=== PATIENT | male | born 1960 | race Caucasian/White ===

== ENCOUNTER 2018-02-06 07:58 | Inpatient (IN) | payer MEDICARE, OTHER ==
[~2018-02-06] VITALS: Ht 170.2 cm; Wt 100.6 kg
[2018-02-06 08:33] LABS: BASOPHILS % (AUTO) 0.6 % (0-1); EOSINOPHILS # (AUTO) 0.1 X10'3 (0-0.9); EOSINOPHILS % (AUTO) 2.2 % (0-6); HEMATOCRIT 55.9 % (42.0-52.0); LYMPHOCYTES % (AUTO) 18.4 % (21-51); MEAN CORPUSCULAR HEMOGLOBIN 32.5 PG (27.0-31.0); MEAN CORPUSCULAR HGB CONC 32.3 % (33.0-36.5); MEAN CORPUSCULAR VOLUME 100.6 FL (78-98); MEAN PLATELET VOLUME 8.1 FL (7.4-10.4); MONOCYTES # (AUTO) 0.4 X10'3 (0-0.9); MONOCYTES % (AUTO) 6.6 % (2-12); NEUTROPHILS % (AUTO) 72.2 % (42-75); PLATELET COUNT 142 X10'3 (140-440); RED BLOOD COUNT 5.55 X10'6 (4.70-6.10); RED CELL DISTRIBUTION WIDTH 18.5 % (11.5-14.5); WHITE BLOOD COUNT 5.6 X10'3 (4.5-11.0)
[2018-02-06 08:50] LABS: ALANINE AMINOTRANSFERASE 9 U/L (12-78); ALBUMIN 2.7 G/DL (3.4-5.0); ALBUMIN/GLOBULIN RATIO 0.6 (1.1-1.5); ALKALINE PHOSPHATASE 124 IU/L (46-116); ANION GAP 9 (8-16); ASPARTATE AMINO TRANSFERASE 34 U/L (10-37); BILIRUBIN,TOTAL 2.1 MG/DL (0.1-1.0); BLOOD UREA NITROGEN 17 MG/DL (7-18); BUN/CREATININE RATIO 16.8 (5.4-32.0); CALCIUM 8.7 MG/DL (8.5-10.1); CHLORIDE 102 MMOL/L (99-107); CREATININE 1.01 MG/DL (0.60-1.10); GLUCOSE 120 MG/DL (70-104); POTASSIUM 4.1 MMOL/L (3.5-5.1); SODIUM 141 MMOL/L (135-145); TOTAL CARBON DIOXIDE 30.5 MMOL/L (24-32); TOTAL PROTEIN 7.5 G/DL (6.4-8.2); eGFR 76 ML/MIN
[2018-02-06] MEDS ORDERED: albuterol 2.5 MG/3 ML nebule NEB ONE (09:25)
[2018-02-06] MEDS ORDERED: normal saline 1000ML IV soln IVB ONE (09:25)
[2018-02-06 09:29] LABS: PLATELET ESTIMATE NORMAL; POLYCHROMASIA FEW; TARGET CELLS FEW
[2018-02-06 09:48] LABS: D-DIMER 2.37 MG/L FEU (0-0.50)
[2018-02-06] MEDS ORDERED: iohexol 350MG/ML 100ml bottle IV ONE (11:16)
[2018-02-06] MEDS ORDERED: enoxaparin 100mg/ml syringe SUBCUT ONE (12:25)
[2018-02-06] MEDS ORDERED: LISI40TA4 PO (13:17)
[2018-02-06] MEDS ORDERED: CARV-50 PO (13:17)
[2018-02-06] MEDS ORDERED: POTA10CA44 PO (13:17)
[2018-02-06] MEDS ORDERED: FURO-150 PO (13:17)
[2018-02-06] MEDS ORDERED: docusate sod 100mg capsule PO PRN (13:20)
[2018-02-06] MEDS ORDERED: ondansetron/PF 4mg/2ml inj IV PRN (13:20)
[2018-02-06] MEDS ORDERED: magnesium 4gm in 100ml NS 100 ML IV PRN (13:20)
[2018-02-06] MEDS ORDERED: acetaminophen 325mg tablet PO PRN (13:20)
[2018-02-06] MEDS ORDERED: potassium Cl 20 mEq SR tablet PO PRN ×2 (13:20)
[2018-02-06] MEDS ORDERED: magnesium Cl slow-release 64mg tablet PO PRN (13:20)
[2018-02-06] MEDS ORDERED: magnesium 1gm/100ml D5W IVPB 100 ML IV PRN (13:20)
[2018-02-06] MEDS ORDERED: potassium Cl 40MEQ/NS 500ml 500 ML IV PRN ×2 (13:20)
[2018-02-06] MEDS ORDERED: heparin 10,000 units/1 ML INJ IV ONE (13:30)
[2018-02-06] MEDS ORDERED: heparin 10,000 units/1 ML INJ IV PRN (13:30)
[2018-02-06 13:39] LABS: INR 1.3 INR; PARTIAL THROMBOPLASTIN TIME 31 SECONDS (22-32); PROTHROMBIN TIME 13.2 SECONDS (9.0-12.0)
[2018-02-06 15:00] VITALS: BP 132/94
[2018-02-06] MEDS: heparin 25,000 UNIT/250ml bag 250 ML IV SCH (16:28)
[2018-02-06 16:31] LABS: ABG BASE EXCESS 3.7 mmol/L (-2.0-3.0); ABG HCO3 28.7 mmol/L (22.0-26.0); ABG OXYGEN SATURATION 94.1 % (95-98); ABG PCO2 (T) 44.1 mmHg (35.0-48.0); ABG PH (T) 7.432 (7.350-7.450); ABG PO2 (T) 73.9 mmHg (83-108); ALLEN'S TEST Positive; FCOHb 0.4 % (0.5-1.5); FMetHb 0.4 % (0.3-1.12); FO2Hb 93.3 % (94-100); TOTAL HEMOGLOBIN 19.2 G/dl (14.0-18.0)
[2018-02-06] MEDS: albuterol 2.5 MG/3 ML nebule NEB SCH ×3 (16:36→23:17)
[2018-02-06 19:00] VITALS: BP 110/83
[2018-02-06] MEDS ORDERED: carVEDilol 12.5mg tablet PO SCH (20:00)
[2018-02-06] MEDS: potassium chloride 8mEq ER tablet PO SCH (20:38)
[2018-02-06] MEDS: carvedilol 6.25mg tablet PO SCH (20:38)
[2018-02-06 23:00] VITALS: BP 130/97
[2018-02-07] MEDS: heparin 25,000 UNIT/250ml bag 250 ML IV SCH (02:16)
[2018-02-07 03:00] VITALS: BP 107/77
[2018-02-07] MEDS: albuterol 2.5 MG/3 ML nebule NEB SCH ×7 (03:37→23:06)
[2018-02-07 05:15] LABS: BASOPHILS % (AUTO) 0.7 % (0-1); EOSINOPHILS # (AUTO) 0.2 X10'3 (0-0.9); EOSINOPHILS % (AUTO) 2.6 % (0-6); HEMATOCRIT 53.1 % (42.0-52.0); HEMOGLOBIN 17.3 g/dl (14.0-17.9); LYMPHOCYTES # (AUTO) 1.3 X10'3 (1.1-4.8); LYMPHOCYTES % (AUTO) 20.4 % (21-51); MEAN CORPUSCULAR HGB CONC 32.5 % (33.0-36.5); MEAN CORPUSCULAR VOLUME 101.3 FL (78-98); MEAN PLATELET VOLUME 8.2 FL (7.4-10.4); MONOCYTES # (AUTO) 0.7 X10'3 (0-0.9); MONOCYTES % (AUTO) 10.8 % (2-12); NEUTROPHILS # (AUTO) 4.1 X10'3 (1.8-7.7); NEUTROPHILS % (AUTO) 65.5 % (42-75); PLATELET COUNT 130 X10'3 (140-440); RED BLOOD COUNT 5.24 X10'6 (4.70-6.10); RED CELL DISTRIBUTION WIDTH 18.3 % (11.5-14.5); WHITE BLOOD COUNT 6.3 X10'3 (4.5-11.0)
[2018-02-07 06:28] LABS: ALANINE AMINOTRANSFERASE 12 U/L (12-78); ALBUMIN 2.5 G/DL (3.4-5.0); ALBUMIN/GLOBULIN RATIO 0.6 (1.1-1.5); ALKALINE PHOSPHATASE 110 IU/L (46-116); ANION GAP 8 (8-16); ASPARTATE AMINO TRANSFERASE 32 U/L (10-37); BILIRUBIN,TOTAL 1.4 MG/DL (0.1-1.0); BLOOD UREA NITROGEN 22 MG/DL (7-18); BUN/CREATININE RATIO 22.4 (5.4-32.0); CHLORIDE 105 MMOL/L (99-107); CREATININE 0.98 MG/DL (0.60-1.10); GLUCOSE 105 MG/DL (70-104); MAGNESIUM 1.8 MG/DL (1.5-2.4); POTASSIUM 4.1 MMOL/L (3.5-5.1); SODIUM 141 MMOL/L (135-145); TOTAL CARBON DIOXIDE 27.7 MMOL/L (24-32); TOTAL PROTEIN 6.9 G/DL (6.4-8.2); eGFR 79 ML/MIN
[2018-02-07 07:00] VITALS: BP 128/98
[2018-02-07] MEDS: methylPREDNISolone sod succ 125mg/2ml vial IV SCH (07:06)
[2018-02-07] MEDS: carvedilol 6.25mg tablet PO SCH ×2 (07:08→20:18)
[2018-02-07] MEDS: potassium chloride 8mEq ER tablet PO SCH ×2 (07:08→20:18)
[2018-02-07] MEDS: lisinopril 10 MG tablet PO SCH (07:08)
[2018-02-07 07:17] LABS: PLATELET ESTIMATE DECREASED; POLYCHROMASIA 1+
[2018-02-07 07:41] LABS: ANISOCYTOSIS 2+; TARGET CELLS 1+
[2018-02-07] MEDS ORDERED: non-formulary drug (Lisinopril* 10 MG) PO SCH (08:00)
[2018-02-07] MEDS ORDERED: furosemide 10 MG/1 ML 10ml inj IV SCH (08:00)
[2018-02-07] MEDS: K and/or MAG REPLACEMENT MC SCH (08:00)
[2018-02-07 11:00] VITALS: BP 130/92
[2018-02-07] MEDS ORDERED: iohexol 350MG/ML 100ml bottle IV ONE (12:01)
[2018-02-07 15:00] VITALS: BP 125/88
[2018-02-07] MEDS: levoFLOXACIN-Levaquin 500mg/D5 100 ML IV SCH (15:42)
[2018-02-07 18:00] VITALS: BP 131/88
[2018-02-07] MEDS: heparin, porcine 5000 units/ml vial SQ SCH (20:14)
[2018-02-07] MEDS: furosemide 10 MG/1 ML 10ml inj IV SCH (20:17)
[2018-02-07 22:00] VITALS: BP 100/65
[2018-02-08 02:00] VITALS: BP 118/87
[2018-02-08] MEDS: albuterol 2.5 MG/3 ML nebule NEB SCH ×6 (03:08→23:47)
[2018-02-08 06:49] VITALS: BP 111/78
[2018-02-08 07:00] LABS: BASOPHILS % (AUTO) 0.1 % (0-1); EOSINOPHILS % (AUTO) 0 % (0-6); HEMATOCRIT 50.9 % (42.0-52.0); HEMOGLOBIN 16.4 g/dl (14.0-17.9); LYMPHOCYTES # (AUTO) 0.5 X10'3 (1.1-4.8); LYMPHOCYTES % (AUTO) 4.5 % (21-51); MEAN CORPUSCULAR HGB CONC 32.3 % (33.0-36.5); MEAN CORPUSCULAR VOLUME 102.3 FL (78-98); MEAN PLATELET VOLUME 8.4 FL (7.4-10.4); MONOCYTES # (AUTO) 0.8 X10'3 (0-0.9); NEUTROPHILS # (AUTO) 9.2 X10'3 (1.8-7.7); NEUTROPHILS % (AUTO) 87.4 % (42-75); PLATELET COUNT 129 X10'3 (140-440); RED BLOOD COUNT 4.98 X10'6 (4.70-6.10); RED CELL DISTRIBUTION WIDTH 18.4 % (11.5-14.5); WHITE BLOOD COUNT 10.6 X10'3 (4.5-11.0)
[2018-02-08 07:20] LABS: ALANINE AMINOTRANSFERASE 10 U/L (12-78); ALBUMIN 2.4 G/DL (3.4-5.0); ALBUMIN/GLOBULIN RATIO 0.5 (1.1-1.5); ALKALINE PHOSPHATASE 113 IU/L (46-116); ANION GAP 5 (8-16); ASPARTATE AMINO TRANSFERASE 29 U/L (10-37); BLOOD UREA NITROGEN 17 MG/DL (7-18); BUN/CREATININE RATIO 15.7 (5.4-32.0); CALCIUM 8.8 MG/DL (8.5-10.1); CHLORIDE 104 MMOL/L (99-107); CREATININE 1.08 MG/DL (0.60-1.10); GLUCOSE 158 MG/DL (70-104); MAGNESIUM 1.9 MG/DL (1.5-2.4); SODIUM 142 MMOL/L (135-145); TOTAL CARBON DIOXIDE 33.5 MMOL/L (24-32); TOTAL PROTEIN 6.9 G/DL (6.4-8.2); eGFR 70 ML/MIN
[2018-02-08] MEDS: heparin, porcine 5000 units/ml vial SQ SCH ×3 (08:00→19:25)
[2018-02-08] MEDS: methylPREDNISolone sod succ 125mg/2ml vial IV SCH (08:00)
[2018-02-08] MEDS: K and/or MAG REPLACEMENT MC SCH (08:00)
[2018-02-08] MEDS: levoFLOXACIN-Levaquin 500mg/D5 100 ML IV SCH (08:47)
[2018-02-08] MEDS: furosemide 10 MG/1 ML 10ml inj IV SCH ×2 (08:47→19:22)
[2018-02-08] MEDS: potassium chloride 8mEq ER tablet PO SCH ×2 (08:48→19:21)
[2018-02-08] MEDS: lisinopril 10 MG tablet PO SCH (08:48)
[2018-02-08] MEDS: carvedilol 6.25mg tablet PO SCH ×2 (08:48→19:21)
[2018-02-08 11:00] VITALS: BP 108/75
[2018-02-08 15:00] VITALS: BP 111/91
[2018-02-08 19:00] VITALS: BP 128/96
[2018-02-08] MEDS: predniSONE 20 mg tablet PO SCH ×2 (19:21→19:26)
[2018-02-08] MEDS: temazepam 15mg capsule PO PRN ×2 (19:32→21:04)
[2018-02-08 23:00] VITALS: BP 96/73
[2018-02-09] MEDS: albuterol 2.5 MG/3 ML nebule NEB SCH ×6 (02:22→23:42)
[2018-02-09 03:00] VITALS: BP 92/57
[2018-02-09 06:10] LABS: BASOPHILS # (AUTO) 0.1 X10'3 (0-0.2); BASOPHILS % (AUTO) 0.6 % (0-1); EOSINOPHILS # (AUTO) 0.1 X10'3 (0-0.9); EOSINOPHILS % (AUTO) 1.3 % (0-6); HEMATOCRIT 52.1 % (42.0-52.0); HEMOGLOBIN 16.5 g/dl (14.0-17.9); LYMPHOCYTES # (AUTO) 0.8 X10'3 (1.1-4.8); LYMPHOCYTES % (AUTO) 9.3 % (21-51); MEAN CORPUSCULAR HEMOGLOBIN 32.5 PG (27.0-31.0); MEAN CORPUSCULAR HGB CONC 31.7 % (33.0-36.5); MEAN CORPUSCULAR VOLUME 102.3 FL (78-98); MEAN PLATELET VOLUME 8.1 FL (7.4-10.4); MONOCYTES # (AUTO) 0.9 X10'3 (0-0.9); MONOCYTES % (AUTO) 9.9 % (2-12); NEUTROPHILS % (AUTO) 78.9 % (42-75); PLATELET COUNT 156 X10'3 (140-440); RED BLOOD COUNT 5.09 X10'6 (4.70-6.10); RED CELL DISTRIBUTION WIDTH 18.6 % (11.5-14.5); WHITE BLOOD COUNT 8.8 X10'3 (4.5-11.0)
[2018-02-09 06:23] LABS: ALANINE AMINOTRANSFERASE 11 U/L (12-78); ALBUMIN 2.6 G/DL (3.4-5.0); ALBUMIN/GLOBULIN RATIO 0.6 (1.1-1.5); ALKALINE PHOSPHATASE 107 IU/L (46-116); ANION GAP 5 (8-16); ASPARTATE AMINO TRANSFERASE 32 U/L (10-37); BILIRUBIN,TOTAL 1.4 MG/DL (0.1-1.0); BLOOD UREA NITROGEN 16 MG/DL (7-18); BUN/CREATININE RATIO 15.2 (5.4-32.0); CALCIUM 8.5 MG/DL (8.5-10.1); CHLORIDE 100 MMOL/L (99-107); CREATININE 1.05 MG/DL (0.60-1.10); GLUCOSE 127 MG/DL (70-104); MAGNESIUM 1.6 MG/DL (1.5-2.4); SODIUM 141 MMOL/L (135-145); TOTAL PROTEIN 7.1 G/DL (6.4-8.2); eGFR 73 ML/MIN
[2018-02-09 07:00] VITALS: BP 125/91
[2018-02-09] MEDS: predniSONE 20 mg tablet PO SCH (08:00)
[2018-02-09] MEDS: K and/or MAG REPLACEMENT MC SCH (08:00)
[2018-02-09] MEDS: heparin, porcine 5000 units/ml vial SQ SCH ×2 (08:00→19:00)
[2018-02-09] MEDS: carvedilol 6.25mg tablet PO SCH ×2 (08:12→19:30)
[2018-02-09] MEDS: potassium chloride 8mEq ER tablet PO SCH ×2 (08:12→19:30)
[2018-02-09] MEDS: lisinopril 10 MG tablet PO SCH (08:13)
[2018-02-09] MEDS: furosemide 10 MG/1 ML 10ml inj IV SCH ×2 (08:13→19:30)
[2018-02-09 11:00] VITALS: BP 122/84
[2018-02-09] MEDS: levoFLOXACIN 500mg tablet PO SCH (11:30)
[2018-02-09 15:00] VITALS: BP 115/76
[2018-02-09 19:00] VITALS: BP 136/93
[2018-02-09] MEDS: temazepam 15mg capsule PO PRN (19:33)
[2018-02-09] MEDS: acetaminophen 325mg tablet PO PRN (19:34)
[2018-02-09 23:00] VITALS: BP 116/88
[2018-02-10] MEDS: temazepam 15mg capsule PO PRN (00:44)
[2018-02-10 03:00] VITALS: BP 125/88
[2018-02-10] MEDS: albuterol 2.5 MG/3 ML nebule NEB SCH ×3 (03:20→11:53)
[2018-02-10 06:41] LABS: BASOPHILS % (AUTO) 0.8 % (0-1); EOSINOPHILS # (AUTO) 0.2 X10'3 (0-0.9); EOSINOPHILS % (AUTO) 3.3 % (0-6); HEMATOCRIT 52.2 % (42.0-52.0); HEMOGLOBIN 16.9 g/dl (14.0-17.9); LYMPHOCYTES # (AUTO) 0.8 X10'3 (1.1-4.8); LYMPHOCYTES % (AUTO) 15.1 % (21-51); MEAN CORPUSCULAR HEMOGLOBIN 32.7 PG (27.0-31.0); MEAN CORPUSCULAR HGB CONC 32.4 % (33.0-36.5); MEAN PLATELET VOLUME 7.9 FL (7.4-10.4); MONOCYTES # (AUTO) 0.8 X10'3 (0-0.9); MONOCYTES % (AUTO) 14.3 % (2-12); NEUTROPHILS # (AUTO) 3.5 X10'3 (1.8-7.7); NEUTROPHILS % (AUTO) 66.5 % (42-75); PLATELET COUNT 135 X10'3 (140-440); RED BLOOD COUNT 5.17 X10'6 (4.70-6.10); RED CELL DISTRIBUTION WIDTH 17.9 % (11.5-14.5); WHITE BLOOD COUNT 5.3 X10'3 (4.5-11.0)
[2018-02-10 06:49] LABS: ALANINE AMINOTRANSFERASE 11 U/L (12-78); ALBUMIN 2.5 G/DL (3.4-5.0); ALBUMIN/GLOBULIN RATIO 0.6 (1.1-1.5); ALKALINE PHOSPHATASE 98 IU/L (46-116); ANION GAP 2 (8-16); ASPARTATE AMINO TRANSFERASE 32 U/L (10-37); BILIRUBIN,TOTAL 1.3 MG/DL (0.1-1.0); CALCIUM 8.6 MG/DL (8.5-10.1); CHLORIDE 100 MMOL/L (99-107); CREATININE 0.95 MG/DL (0.60-1.10); GLUCOSE 107 MG/DL (70-104); MAGNESIUM 1.8 MG/DL (1.5-2.4); POTASSIUM 3.9 MMOL/L (3.5-5.1); SODIUM 139 MMOL/L (135-145); TOTAL CARBON DIOXIDE 37.2 MMOL/L (24-32); eGFR 82 ML/MIN
[2018-02-10 07:01] LABS: BLOOD UREA NITROGEN 22 MG/DL (7-18); BUN/CREATININE RATIO 23.2 (5.4-32.0)
[2018-02-10] MEDS: heparin, porcine 5000 units/ml vial SQ SCH (08:00)
[2018-02-10] MEDS: K and/or MAG REPLACEMENT MC SCH (08:00)
[2018-02-10] MEDS: furosemide 10 MG/1 ML 10ml inj IV SCH (08:19)
[2018-02-10] MEDS: carvedilol 6.25mg tablet PO SCH (08:20)
[2018-02-10] MEDS: acetaminophen 325mg tablet PO PRN (08:20)
[2018-02-10] MEDS: potassium chloride 8mEq ER tablet PO SCH (08:20)
[2018-02-10] MEDS: lisinopril 10 MG tablet PO SCH (08:21)
[2018-02-10 11:00] VITALS: BP 105/78
[2018-02-10] MEDS: levoFLOXACIN 500mg tablet PO SCH (11:23)
== END 2018-02-10 13:55 | DRG 291 ==
LOC: ER 08:00 → ED HOLD 13:16 → PCU 3S 14:55 → CMPBEDREQ 02-08 12:17
PROVIDERS: ADMIT Internal Medicine; ATTEND Family Medicine
PROC: B32T1ZZ Computerized Tomography (CT Scan) of Left Pulmonary Artery using Low Osmolar Contrast (ICD-10-PCS; principal; 2018-02-06)
PROC: B3201ZZ Computerized Tomography (CT Scan) of Thoracic Aorta using Low Osmolar Contrast (ICD-10-PCS; 2018-02-06)
PROC: B32S1ZZ Computerized Tomography (CT Scan) of Right Pulmonary Artery using Low Osmolar Contrast (ICD-10-PCS; 2018-02-06)
PROC: B32T1ZZ Computerized Tomography (CT Scan) of Left Pulmonary Artery using Low Osmolar Contrast (ICD-10-PCS; 2018-02-07)
PROC: B3201ZZ Computerized Tomography (CT Scan) of Thoracic Aorta using Low Osmolar Contrast (ICD-10-PCS; 2018-02-07)
PROC: B32S1ZZ Computerized Tomography (CT Scan) of Right Pulmonary Artery using Low Osmolar Contrast (ICD-10-PCS; 2018-02-07)
DX: I11.0 Hypertensive heart disease with heart failure (principal); J96.01 Acute respiratory failure with hypoxia; J18.9 Pneumonia, unspecified organism; J44.1 Chronic obstructive pulmonary disease with (acute) exacerbation; J44.0 Chronic obstructive pulmonary disease with (acute) lower respiratory infection; F17.200 Nicotine dependence, unspecified, uncomplicated; I25.10 Atherosclerotic heart disease of native coronary artery without angina pectoris; I25.2 Old myocardial infarction; I42.9 Cardiomyopathy, unspecified; I50.23 Acute on chronic systolic (congestive) heart failure; Z66 Do not resuscitate; F15.90 Other stimulant use, unspecified, uncomplicated; Z95.5 Presence of coronary angioplasty implant and graft; Z88.5 Allergy status to narcotic agent; Z71.6 Tobacco abuse counseling
CPT/HCPCS: 36415; 36600; 71045; 71275; 80053; 82803; 82948; 83735; 83880; 84145; 84484; 85018; 85025; 85379; 85610; 85730; 87070; 93005; 93306; 94640; 94760; 96360; 96361; 99285; G0378; J1644; J1650; J1940; J1956; J2930; J7512; Q9967

== ENCOUNTER 2018-05-28 09:29 | Emergency (ER) | payer MEDICARE, OTHER ==
[~2018-05-28] VITALS: Ht 172.7 cm; Wt 96.4 kg
[~2018-05-28 09:29] MED LIST: ACET-812 PO; ALB0.5UD IH; BUDE0.256 IH; CARV-50 PO; COROTSUS RIGHT EAR; FURO-150 PO; IPRA3AMP31 IH; LISI10TA4 PO; MAGN250T2 PO; POTA10CA44 PO; VITA1TAB20 PO
[2018-05-28 10:16] LABS: BASOPHILS # (AUTO) 0.1 X10'3 (0-0.2); BASOPHILS % (AUTO) 0.9 % (0-1); EOSINOPHILS # (AUTO) 0.1 X10'3 (0-0.9); EOSINOPHILS % (AUTO) 0.9 % (0-6); HEMATOCRIT 54.1 % (42.0-52.0); HEMOGLOBIN 17.9 g/dl (14.0-17.9); LYMPHOCYTES # (AUTO) 0.8 X10'3 (1.1-4.8); MEAN CORPUSCULAR HEMOGLOBIN 33.4 PG (27.0-31.0); MEAN CORPUSCULAR HGB CONC 33.2 g/dL (33.0-36.5); MEAN CORPUSCULAR VOLUME 100.8 FL (78-98); MEAN PLATELET VOLUME 7.8 FL (7.4-10.4); MONOCYTES # (AUTO) 0.9 X10'3 (0-0.9); NEUTROPHILS # (AUTO) 5.7 X10'3 (1.8-7.7); NEUTROPHILS % (AUTO) 75.2 % (42-75); PLATELET COUNT 147 X10'3 (140-440); RED BLOOD COUNT 5.37 X10'6 (4.70-6.10); RED CELL DISTRIBUTION WIDTH 17.4 % (11.5-14.5); WHITE BLOOD COUNT 7.6 X10'3 (4.5-11.0)
[2018-05-28 10:29] LABS: ALANINE AMINOTRANSFERASE 10 U/L (12-78); ALBUMIN 3.1 G/DL (3.4-5.0); ALBUMIN/GLOBULIN RATIO 0.6 (1.1-1.5); ALKALINE PHOSPHATASE 115 IU/L (46-116); ANION GAP 8 (8-16); ASPARTATE AMINO TRANSFERASE 39 U/L (10-37); BILIRUBIN,TOTAL 2.9 MG/DL (0.1-1.0); BLOOD UREA NITROGEN 20 MG/DL (7-18); BUN/CREATININE RATIO 19.2 (5.4-32.0); CALCIUM 8.6 MG/DL (8.5-10.1); CHLORIDE 94 MMOL/L (99-107); CREATININE 1.04 MG/DL (0.60-1.10); GLUCOSE 109 MG/DL (70-104); POTASSIUM 3.9 MMOL/L (3.5-5.1); SODIUM 131 MMOL/L (135-145); TOTAL CARBON DIOXIDE 28.9 MMOL/L (24-32); TOTAL PROTEIN 7.9 G/DL (6.4-8.2); eGFR 73 ML/MIN
[2018-05-28] MEDS ORDERED: normal saline 1000ML IV soln IVB ONE (11:20)
[2018-05-28] MEDS ORDERED: benzonatate 100mg capsule PO ONE (11:20)
[2018-05-28] MEDS ORDERED: ipratropium/albuterol 3ml nebule NEB ONE (11:20)
--- NOTE | 2018-05-28 13:31 | NUR ---
NEB TREATMENT GIVEN EARLIER PER RT.
[2018-05-28 13:42] VITALS: BP 124/92
[2018-05-28] MEDS ORDERED: PRED20TA PO (13:49)
[2018-05-28] MEDS ORDERED: BENZ-16 PO (13:49)
[2018-05-28] MEDS ORDERED: AZIT-63 PO (13:49)
== END 2018-05-28 14:15 | disposition home or self-care (01) ==
LOC: ER 09:30
DX: J44.1 Chronic obstructive pulmonary disease with (acute) exacerbation (principal); J40 Bronchitis, not specified as acute or chronic; R79.89 Other specified abnormal findings of blood chemistry; R56.9 Unspecified convulsions; I11.0 Hypertensive heart disease with heart failure; I50.9 Heart failure, unspecified; I25.10 Atherosclerotic heart disease of native coronary artery without angina pectoris; I25.2 Old myocardial infarction; E11.9 Type 2 diabetes mellitus without complications; F15.90 Other stimulant use, unspecified, uncomplicated; Z95.1 Presence of aortocoronary bypass graft; Z87.891 Personal history of nicotine dependence; Z88.6 Allergy status to analgesic agent
CPT/HCPCS: 36415; 70450; 71046; 76700; 80053; 83605; 85025; 87040; 94640; 94760; 99284

== ENCOUNTER 2019-01-30 02:15 | Inpatient (IN) | payer MEDICARE, MEDICAID ==
[~2019-01-30] VITALS: Ht 170.2 cm; Wt 100.0 kg
[2019-01-30] MEDS ORDERED: furosemide 10 MG/1 ML 10ml inj IV ONE (02:35)
[2019-01-30 02:41] LABS: BASOPHILS # (AUTO) 0.1 X10'3 (0-0.2); BASOPHILS % (AUTO) 0.8 % (0-1); EOSINOPHILS # (AUTO) 0.2 X10'3 (0-0.9); EOSINOPHILS % (AUTO) 1.5 % (0-6); HEMATOCRIT 53.4 % (42.0-52.0); HEMOGLOBIN 17.9 g/dl (14.0-17.9); LYMPHOCYTES # (AUTO) 0.6 X10'3 (1.1-4.8); LYMPHOCYTES % (AUTO) 5.1 % (21-51); MEAN CORPUSCULAR HEMOGLOBIN 34.4 PG (27.0-31.0); MEAN CORPUSCULAR HGB CONC 33.5 g/dL (33.0-36.5); MEAN CORPUSCULAR VOLUME 102.7 FL (78-98); MEAN PLATELET VOLUME 7.4 FL (7.4-10.4); MONOCYTES # (AUTO) 0.7 X10'3 (0-0.9); MONOCYTES % (AUTO) 6.3 % (2-12); NEUTROPHILS # (AUTO) 9.7 X10'3 (1.8-7.7); NEUTROPHILS % (AUTO) 86.3 % (42-75); PLATELET COUNT 179 X10'3 (140-440); RED CELL DISTRIBUTION WIDTH 17.6 % (11.5-14.5); WHITE BLOOD COUNT 11.2 X10'3 (4.5-11.0)
[2019-01-30 02:51] LABS: PARTIAL THROMBOPLASTIN TIME 32 SECONDS (22-32)
[2019-01-30 03:01] LABS: ALANINE AMINOTRANSFERASE 8 U/L (12-78); ALBUMIN 3.6 G/DL (3.4-5.0); ALBUMIN/GLOBULIN RATIO 0.6 (1.1-1.5); ALKALINE PHOSPHATASE 122 IU/L (46-116); ANION GAP 7 (8-16); ASPARTATE AMINO TRANSFERASE 48 U/L (10-37); BILIRUBIN,TOTAL 3.2 MG/DL (0.1-1.0); BLOOD UREA NITROGEN 26 MG/DL (7-18); BUN/CREATININE RATIO 18.3 (5.4-32.0); CALCIUM 8.9 MG/DL (8.5-10.1); CHLORIDE 94 MMOL/L (99-107); CREATININE 1.42 MG/DL (0.60-1.10); ETHANOL < 0.010 GM/DL (0.0-0.010); GLUCOSE 103 MG/DL (70-104); SODIUM 128 MMOL/L (135-145); TOTAL PROTEIN 9.6 G/DL (6.4-8.2); eGFR 51 ML/MIN
[2019-01-30 03:05] LABS: POTASSIUM 6.3 MMOL/L (3.5-5.1)
--- NOTE | 2019-01-30 03:07 | NUR ---
K+ 6.[address] SALMON
--- NOTE | 2019-01-30 03:28 | NUR ---
PATIENT MOANING AND GROANING IN BED, STATES THAT HE NEEDS TO SIT UP, BUT DOES NOT WANT THE BED UP. WHEN ASKED SAYS THAT THE PAIN IS IN HIS RIGHT SHOULDER DUE TO " ALL THE LIGAMENTS FROM HIS BACK IN 1988" PATIENT HAS ALSO STATED MANY TIMES THAT HE DOES NOT WANT PAIN MEDICATIONS DUE TO HIS "HISTORY"
--- NOTE | 2019-01-30 03:31 | NUR ---
PATIENT STATED THAT HE HAS HAD "TROUBLE PEEING" BLADDER SCAN SHOWED 150ML
[2019-01-30] MEDS ORDERED: insulin regular, human 10 units/0.1 ml syringe IV ONE (03:35)
[2019-01-30] MEDS ORDERED: albuterol 2.5 MG/3 ML nebule NEB ONE (03:35)
[2019-01-30] MEDS ORDERED: aspirin 81mg tab.chew PO ONE (03:35)
[2019-01-30] MEDS ORDERED: dextrose 50%-water 50ml dispensing syringe IV ONE (03:35)
[2019-01-30] MEDS ORDERED: lactulose 20gm/30ml cup PO ONE (03:50)
[2019-01-30] MEDS ORDERED: calcium gluconate inj. 1 GM in normal saline 100ml IV soln 100 ML IV ONE (03:50)
[2019-01-30 04:06] LABS: PHOSPHORUS 4.9 MG/DL (2.3-4.5)
[2019-01-30] MEDS ORDERED: ondansetron/PF 4mg/2ml inj IV PRN (04:30)
[2019-01-30] MEDS ORDERED: mag hydrox/Alum hydrox/simeth 30ml oral suspension PO PRN (04:30)
[2019-01-30] MEDS ORDERED: HYDROcodone/acetaminophen 5mg/325mg tablet PO PRN (04:30)
[2019-01-30] MEDS ORDERED: heparin 10,000 units/1 ML INJ IV ONE (04:30)
[2019-01-30] MEDS ORDERED: heparin 10,000 units/1 ML INJ IV PRN (04:30)
[2019-01-30] MEDS ORDERED: acetaminophen 325mg tablet PO PRN (04:30)
[2019-01-30] MEDS ORDERED: magnesium hydroxide 30ml (MOM) UD suspension PO PRN (04:30)
--- NOTE | 2019-01-30 04:30 | NUR ---
BP 77/58 DR AWARE, 250ML NS BOLUS ORDERED AND ADMINISTERED AT THIS TIME. PATIENT IS ASYMPTOMATIC AT THIS TIME
[2019-01-30] MEDS ORDERED: albuterol 2.5 MG/3 ML nebule NEB PRN (04:40)
[2019-01-30] MEDS ORDERED: non-formulary drug (Acetaminophen (Tylenol Extra Strength) 1 TABLET) PO PRN (04:40)
[2019-01-30] MEDS ORDERED: ipratropium/albuterol 3ml nebule IH PRN (04:40)
[2019-01-30] MEDS: heparin 25,000 UNIT/250ml bag 250 ML IV SCH ×2 (05:14→13:58)
--- NOTE | 2019-01-30 06:16 | NUR ---
PATIENT GOT HIMSELF TO SIDE OF BED WITHOUT ASSISTANCE
[2019-01-30] MEDS ORDERED: normal saline 1000ML IV soln IVB ONE (06:55)
[2019-01-30] MEDS: carvedilol 6.25mg tablet PO SCH ×2 (07:32→20:00)
[2019-01-30] MEDS: aspirin 81mg tablet.DR PO SCH (07:36)
[2019-01-30 07:40] VITALS: BP 80/59
[2019-01-30] MEDS ORDERED: VITAMIN B COMPLEX PO SCH (08:00)
[2019-01-30] MEDS ORDERED: furosemide 20 MG/2 ML vial IV SCH (08:00)
[2019-01-30] MEDS: budesonide 0.5mg/2ml UD nebule IH SCH ×3 (09:00→19:21)
--- NOTE | 2019-01-30 09:01 | NUR ---
PAGER ID: [phone] MESSAGE: [id number] Jonatan Reeder: BP 79/52 MAP 61. Does claim dizziness when trying to stand. Did received 250cc bolus in ER (ineffective). Also K was 6.3 ER received 5 units humulin in ER. No recheck on K and no Mg levels. JUAN DIEGO John Ext [phone]
[2019-01-30] MEDS ORDERED: potassium Cl 20 mEq SR tablet PO PRN ×2 (09:20)
[2019-01-30] MEDS ORDERED: potassium CL 10mEq/100ml bag 100 ML IV PRN (09:20)
[2019-01-30] MEDS ORDERED: nitroGLYCERIN 0.4mg SUBLingual tab SL PRN (09:30)
[2019-01-30] MEDS ORDERED: aminophylline 250mg/10ml inj. IV PRN (09:30)
[2019-01-30] MEDS ORDERED: regadenoson 0.4mg/5ml syringe IV ONE (09:30)
[2019-01-30] MEDS ORDERED: metoprolol tartrate 1mg/ml inj IV PRN (09:30)
[2019-01-30] MEDS ORDERED: insulin Lispro (HumaLOG) vial - multi-dose SQ SCH (10:55)
[2019-01-30] MEDS ORDERED: glucagon, human recombinant 1mg kit SUBCUT PRN (10:55)
[2019-01-30] MEDS ORDERED: dextrose 50%-water 50ml dispensing syringe IV PRN ×2 (10:55)
[2019-01-30] MEDS ORDERED: dextrose ORAL solution 15 GM/59 ML bottle PO PRN ×2 (10:55)
[2019-01-30] MEDS ORDERED: MESSAGE TO PHARMACY PO ONE (10:55)
[2019-01-30 11:00] VITALS: BP 82/65
[2019-01-30 11:33] VITALS: BP 82/65
[2019-01-30 11:35] LABS: BASOPHILS % (AUTO) 0.3 % (0-1); EOSINOPHILS % (AUTO) 0.2 % (0-6); HEMATOCRIT 48.3 % (42.0-52.0); HEMOGLOBIN 16.2 g/dl (14.0-17.9); LYMPHOCYTES # (AUTO) 0.6 X10'3 (1.1-4.8); LYMPHOCYTES % (AUTO) 4.9 % (21-51); MEAN CORPUSCULAR HEMOGLOBIN 34.4 PG (27.0-31.0); MEAN CORPUSCULAR HGB CONC 33.5 g/dL (33.0-36.5); MEAN CORPUSCULAR VOLUME 102.7 FL (78-98); MEAN PLATELET VOLUME 7.6 FL (7.4-10.4); MONOCYTES # (AUTO) 0.4 X10'3 (0-0.9); MONOCYTES % (AUTO) 3.7 % (2-12); NEUTROPHILS # (AUTO) 10.3 X10'3 (1.8-7.7); NEUTROPHILS % (AUTO) 90.9 % (42-75); PLATELET COUNT 168 X10'3 (140-440); RED CELL DISTRIBUTION WIDTH 17.2 % (11.5-14.5); WHITE BLOOD COUNT 11.3 X10'3 (4.5-11.0)
[2019-01-30 11:53] LABS: ALANINE AMINOTRANSFERASE 6 U/L (12-78); ALBUMIN 3.1 G/DL (3.4-5.0); ALKALINE PHOSPHATASE 103 IU/L (46-116); ANION GAP 7 (8-16); ASPARTATE AMINO TRANSFERASE 34 U/L (10-37); BILIRUBIN,TOTAL 4.1 MG/DL (0.1-1.0); BLOOD UREA NITROGEN 31 MG/DL (7-18); BUN/CREATININE RATIO 17.4 (5.4-32.0); CALCIUM 8.7 MG/DL (8.5-10.1); CHLORIDE 97 MMOL/L (99-107); CREATININE 1.78 MG/DL (0.60-1.10); GLUCOSE 126 MG/DL (70-104); POTASSIUM 5.5 MMOL/L (3.5-5.1); SODIUM 130 MMOL/L (135-145); TOTAL CARBON DIOXIDE 26.2 MMOL/L (24-32); eGFR 39 ML/MIN
[2019-01-30 11:54] LABS: HEMOGLOBIN A1C 5.9 % (4.5-6.2)
[2019-01-30 11:57] LABS: ALBUMIN/GLOBULIN RATIO 0.6 (1.1-1.5); PHOSPHORUS 4.9 MG/DL (2.3-4.5); TOTAL PROTEIN 8.2 G/DL (6.4-8.2)
--- NOTE | 2019-01-30 11:58 | NUR ---
PAGER ID: [phone] MESSAGE: [id number] Jonatan Reeder: Cardiac PTT 101. Gtt bening held for 120 min per protocol. JUAN DIEGO John Ext [phone]
--- NOTE | 2019-01-30 13:43 | NUR ---
Cardiac diet education consult: Pt just admitted this morning with hx COPD, CAD, PA, HTN, CHF, HLD, T2DM, and illicit drug abuse. Lipid panel WNL at previous visit in 2018, pending new lipid panel this visit. Will f/u for heart healthy diet education pending lipid panel results. Pt currently on heart healthy CHO controlled diet documented with 100% PO intake meeting nutrient needs. Pt with hx T2DM, A1c 5.9 not warranting DM education. [facility] 01/30. Will continue to follow. Addendum: 01/30/19 at [address] Amended: Links added.
[2019-01-30 14:18] LABS: URINE AMPHETAMINE SCREEN NEGATIVE (Neg); URINE BARBITUATE SCREEN NEGATIVE (Neg); URINE BENZODIAZEPINES SCREEN NEGATIVE (Neg); URINE CANNABINOID SCREEN NEGATIVE (Neg); URINE COCAINE SCREEN NEGATIVE (Neg); URINE METHADONE SCREEN NEGATIVE (Neg); URINE OPIATE SCREEN NEGATIVE (Neg); URINE PHENCYCLIDINE SCREEN NEGATIVE (Neg)
[2019-01-30 15:00] VITALS: BP 89/69
[2019-01-30] MEDS ORDERED: sodium polystyrene sulfonate 15gm/60ml oral suspension PO ONE (16:20)
--- NOTE | 2019-01-30 16:22 | NUR ---
No change to heparin gtt PTT therapeutic.
[2019-01-30 18:00] VITALS: BP 93/67
--- NOTE | 2019-01-30 18:15 | NUR ---
Patient in room PCU 3026. I have received report from Alvaro Adame and had the opportunity to ask questions and assume patient care.
--- NOTE | 2019-01-30 18:31 | NUR ---
Problems reprioritized. Patient report given, questions answered & plan of care reviewed with JUAN DIEGO Patrick.
[2019-01-30] MEDS: acetaminophen 325mg tablet PO PRN (18:41)
[2019-01-30] MEDS: sulfamethoxazole/trimethoprim DS (800/160mg) tablet PO SCH (19:53)
[2019-01-30] MEDS: furosemide 20 MG/2 ML vial IV SCH (20:00)
--- NOTE | 2019-01-30 20:14 | NUR ---
Dr. Dobson notified of low BP, lasix and carvedilol ordered to be held
[2019-01-30] MEDS: insulin glargine (Lantus) pen - multi-dose SQ SCH (21:00)
[2019-01-30 22:00] VITALS: BP 86/63
[2019-01-31] MEDS: acetaminophen 325mg tablet PO PRN ×2 (00:28→22:19)
[2019-01-31 02:00] VITALS: BP 104/73
[2019-01-31 02:53] LABS: BASOPHILS % (AUTO) 0.7 % (0-1); EOSINOPHILS % (AUTO) 0.4 % (0-6); HEMATOCRIT 46.3 % (42.0-52.0); HEMOGLOBIN 15.7 g/dl (14.0-17.9); LYMPHOCYTES # (AUTO) 0.6 X10'3 (1.1-4.8); LYMPHOCYTES % (AUTO) 8.8 % (21-51); MEAN CORPUSCULAR HEMOGLOBIN 34.8 PG (27.0-31.0); MEAN CORPUSCULAR VOLUME 102.3 FL (78-98); MEAN PLATELET VOLUME 7.7 FL (7.4-10.4); MONOCYTES # (AUTO) 0.9 X10'3 (0-0.9); MONOCYTES % (AUTO) 11.8 % (2-12); NEUTROPHILS # (AUTO) 5.7 X10'3 (1.8-7.7); NEUTROPHILS % (AUTO) 78.3 % (42-75); PLATELET COUNT 149 X10'3 (140-440); RED BLOOD COUNT 4.53 X10'6 (4.70-6.10); RED CELL DISTRIBUTION WIDTH 17.2 % (11.5-14.5); WHITE BLOOD COUNT 7.3 X10'3 (4.5-11.0)
[2019-01-31 02:58] LABS: ALANINE AMINOTRANSFERASE 7 U/L (12-78); ALBUMIN 2.9 G/DL (3.4-5.0); ALBUMIN/GLOBULIN RATIO 0.6 (1.1-1.5); ALKALINE PHOSPHATASE 93 IU/L (46-116); ANION GAP 11 (8-16); ASPARTATE AMINO TRANSFERASE 38 U/L (10-37); BLOOD UREA NITROGEN 42 MG/DL (7-18); BUN/CREATININE RATIO 23.7 (5.4-32.0); CALCIUM 8.5 MG/DL (8.5-10.1); CHLORIDE 95 MMOL/L (99-107); CHOL/HDL RATIO 1.7 (0.00-4.99); CHOLESTEROL 75 MG/DL (0-200); CREATININE 1.77 MG/DL (0.60-1.10); GLUCOSE 104 MG/DL (70-104); HDL CHOLESTEROL 45 MG/DL (35-60); LDL CHOLESTEROL 36 MG/DL (50-100); MAGNESIUM 1.9 MG/DL (1.5-2.4); PHOSPHORUS 5.1 MG/DL (2.3-4.5); POTASSIUM 4.9 MMOL/L (3.5-5.1); SODIUM 129 MMOL/L (135-145); TOTAL CARBON DIOXIDE 23.2 MMOL/L (24-32); TOTAL PROTEIN 7.6 G/DL (6.4-8.2); TRIGLYCERIDES 29 MG/DL (20-135); eGFR 40 ML/MIN
[2019-01-31] MEDS: heparin 25,000 UNIT/250ml bag 250 ML IV SCH ×2 (03:46→20:32)
[2019-01-31 06:00] VITALS: BP 95/74
[2019-01-31 06:23] LABS: HEP B CORE AB, TOT Negative (Negative); HEPATITIS C ANTIBODY >11.0 s/co ratio (0.0-0.9)
--- NOTE | 2019-01-31 06:42 | NUR ---
Problems reprioritized. Patient report given, questions answered & plan of care reviewed with Alondra ADAMSON.
[2019-01-31] MEDS: levoTHYROXINE 75mcg tablet PO SCH (07:00)
[2019-01-31] MEDS: sulfamethoxazole/trimethoprim DS (800/160mg) tablet PO SCH ×2 (08:00→20:58)
[2019-01-31] MEDS: carvedilol 6.25mg tablet PO SCH ×2 (08:00→20:58)
[2019-01-31] MEDS: aspirin 81mg tablet.DR PO SCH (08:00)
[2019-01-31] MEDS: furosemide 20 MG/2 ML vial IV SCH ×2 (08:00→20:00)
[2019-01-31] MEDS: budesonide 0.5mg/2ml UD nebule IH SCH ×2 (08:24→20:27)
--- NOTE | 2019-01-31 09:22 | NUR ---
Per Dr. Ron, cancelled Lexiscan for to low blood pressure.
--- NOTE | 2019-01-31 10:23 | NUR ---
PAGER ID: [phone] MESSAGE: [id number], Radha Reeder Critical Cardiac PTT >139. Current rate 900units. Stopping Heparin for 2 hours. VENKATA Mane [facility] [id number]
[2019-01-31 11:00] VITALS: BP 104/79
--- NOTE | 2019-01-31 12:00 | NUR ---
F/u for consult: Patient's lipid panel WNL per results from this morning and Na remains low at this time. Cardiac diet education not warranted at this time. Will continue to follow. Addendum: 01/31/19 at [address] Amended: Links added.
[2019-01-31 15:00] VITALS: BP 99/75
[2019-01-31 18:00] VITALS: BP 100/77
--- NOTE | 2019-01-31 18:05 | NUR ---
Patient in room PCU 3026. I have received report from Alondra ADAMSON and had the opportunity to ask questions and assume patient care.
--- NOTE | 2019-01-31 18:27 | NUR ---
Problems reprioritized. Patient report given, questions answered & plan of care reviewed with Kit ADAMSON.
[2019-01-31] MEDS: lactobacillus rhamnosus 10,000 MMU CELLS/CAPSULE PO SCH (20:59)
[2019-01-31] MEDS: insulin glargine (Lantus) pen - multi-dose SQ SCH (21:00)
[2019-01-31 22:00] VITALS: BP 88/65
[2019-02-01 02:00] VITALS: BP 98/80
--- NOTE | 2019-02-01 04:02 | NUR ---
patient stated that he wished a excavating supervisor draw his blood instead of the nurse. Activated Sludge Operator said that she would draw him once non-isolation patients were done.
[2019-02-01 05:58] LABS: BASOPHILS # (AUTO) 0.1 X10'3 (0-0.2); BASOPHILS % (AUTO) 0.9 % (0-1); EOSINOPHILS # (AUTO) 0.1 X10'3 (0-0.9); EOSINOPHILS % (AUTO) 2.1 % (0-6); HEMATOCRIT 45.5 % (42.0-52.0); HEMOGLOBIN 15.6 g/dl (14.0-17.9); LYMPHOCYTES # (AUTO) 0.8 X10'3 (1.1-4.8); LYMPHOCYTES % (AUTO) 12.8 % (21-51); MEAN CORPUSCULAR HEMOGLOBIN 34.9 PG (27.0-31.0); MEAN CORPUSCULAR HGB CONC 34.2 g/dL (33.0-36.5); MEAN CORPUSCULAR VOLUME 102.2 FL (78-98); MEAN PLATELET VOLUME 7.6 FL (7.4-10.4); MONOCYTES # (AUTO) 0.8 X10'3 (0-0.9); MONOCYTES % (AUTO) 14.4 % (2-12); NEUTROPHILS # (AUTO) 4.1 X10'3 (1.8-7.7); NEUTROPHILS % (AUTO) 69.8 % (42-75); PLATELET COUNT 154 X10'3 (140-440); RED BLOOD COUNT 4.45 X10'6 (4.70-6.10); RED CELL DISTRIBUTION WIDTH 17.1 % (11.5-14.5); WHITE BLOOD COUNT 5.9 X10'3 (4.5-11.0)
[2019-02-01 06:00] VITALS: BP 102/75
--- NOTE | 2019-02-01 06:26 | NUR ---
Problems reprioritized. Patient report given, questions answered & plan of care reviewed with Leia RN.
[2019-02-01 06:37] LABS: ALANINE AMINOTRANSFERASE 7 U/L (12-78); ALBUMIN 2.9 G/DL (3.4-5.0); ALBUMIN/GLOBULIN RATIO 0.6 (1.1-1.5); ALKALINE PHOSPHATASE 90 IU/L (46-116); ANION GAP 11 (8-16); ASPARTATE AMINO TRANSFERASE 40 U/L (10-37); BILIRUBIN,TOTAL 2.2 MG/DL (0.1-1.0); BLOOD UREA NITROGEN 48 MG/DL (7-18); BUN/CREATININE RATIO 30.2 (5.4-32.0); CALCIUM 8.4 MG/DL (8.5-10.1); CHLORIDE 94 MMOL/L (99-107); CREATININE 1.59 MG/DL (0.60-1.10); GLUCOSE 86 MG/DL (70-104); POTASSIUM 4.7 MMOL/L (3.5-5.1); SODIUM 127 MMOL/L (135-145); TOTAL CARBON DIOXIDE 22.5 MMOL/L (24-32); TOTAL PROTEIN 7.4 G/DL (6.4-8.2); eGFR 45 ML/MIN
[2019-02-01] MEDS: acetaminophen 325mg tablet PO PRN (06:53)
[2019-02-01] MEDS: levoTHYROXINE 75mcg tablet PO SCH (06:53)
--- NOTE | 2019-02-01 06:59 | NUR ---
Patient in room PCU 3026. I have received report from JUAN DIEGO Pantoja and had the opportunity to ask questions and assume patient care. Pt c/o headache, requesting tylenol. Will continue to monitor.
--- NOTE | 2019-02-01 07:23 | NUR ---
Pt states he does not have thyroid problems and does not take levothyroxine. Will inform doctor.
[2019-02-01] MEDS: budesonide 0.5mg/2ml UD nebule IH SCH (07:36)
[2019-02-01] MEDS: sulfamethoxazole/trimethoprim DS (800/160mg) tablet PO SCH (07:48)
[2019-02-01] MEDS: aspirin 81mg tablet.DR PO SCH (07:48)
[2019-02-01] MEDS: lactobacillus rhamnosus 10,000 MMU CELLS/CAPSULE PO SCH (07:48)
[2019-02-01] MEDS: carvedilol 6.25mg tablet PO SCH (07:48)
[2019-02-01] MEDS: furosemide 20 MG/2 ML vial IV SCH (07:49)
[2019-02-01] MEDS ORDERED: ASPI-1071 PO (09:26)
--- NOTE | 2019-02-01 10:02 | NUR ---
Sent to Dr Gamez PAGER ID: [phone] MESSAGE: RE: Jonatan Reeder [id number]. Heparin drip needs to be d/c'd before I can discharge pt. -Leia [phone]
--- NOTE | 2019-02-01 11:45 | NUR ---
Pt discharged. IV d/c'd, tele removed, all belongings sent with pt. Pt wheeled down by staff, accompanied by friend. Left in private vehicle.
--- NOTE | 2019-02-01 12:36 | NUR ---
Unable to set an Addendum: 02/01/19 at 1237 by Leia Mena RN Unable to set an appointment at [facility], d/t it being Saturday. Pt has an appointment set in [place], and will switch to [facility] afterwards.
== END 2019-02-01 11:45 | disposition home or self-care (01) | DRG 280 ==
LOC: ER 02:15 → ED HOLD 04:27 → PCU 3S 07:19
PROVIDERS: ADMIT Hospitalist; ATTEND Internal Medicine
DX: I21.4 Non-ST elevation (NSTEMI) myocardial infarction (principal); I50.23 Acute on chronic systolic (congestive) heart failure; E87.1 Hypo-osmolality and hyponatremia; I13.0 Hypertensive heart and chronic kidney disease with heart failure and stage 1 through stage 4 chronic kidney disease, or unspecified chronic kidney disease; I43 Cardiomyopathy in diseases classified elsewhere; E87.5 Hyperkalemia; B19.20 Unspecified viral hepatitis C without hepatic coma; E11.22 Type 2 diabetes mellitus with diabetic chronic kidney disease; N18.9 Chronic kidney disease, unspecified; M54.9 Dorsalgia, unspecified; E03.9 Hypothyroidism, unspecified; F15.988 Other stimulant use, unspecified with other stimulant-induced disorder; E78.5 Hyperlipidemia, unspecified; J44.9 Chronic obstructive pulmonary disease, unspecified; I25.119 Atherosclerotic heart disease of native coronary artery with unspecified angina pectoris; Z88.6 Allergy status to analgesic agent; I25.2 Old myocardial infarction; Z87.891 Personal history of nicotine dependence; Z95.5 Presence of coronary angioplasty implant and graft; Z86.14 Personal history of Methicillin resistant Staphylococcus aureus infection
CPT/HCPCS: 36415; 71045; 76700; 80053; 80061; 80305; 80320; 82948; 83036; 83735; 83880; 84100; 84443; 84484; 85025; 85610; 85730; 86704; 86706; 86803; 87081; 93005; 93306; 94640; 94760; 99291; G0378; J0610; J1644; J1815; J1940; J7626

== ENCOUNTER 2019-02-20 18:05 | Emergency (ER) | payer MEDICARE, MEDICAID ==
[~2019-02-20] VITALS: Ht 170.2 cm; Wt 105.0 kg
[~2019-02-20 18:05] MED LIST changes: +ASPI-1071 PO; -COROTSUS RIGHT EAR; -LISI10TA4 PO; -MAGN250T2 PO
[2019-02-20 18:41] LABS: BASOPHILS # (AUTO) 0.1 X10'3 (0-0.2); BASOPHILS % (AUTO) 1.4 % (0-1); EOSINOPHILS # (AUTO) 0.3 X10'3 (0-0.9); EOSINOPHILS % (AUTO) 6.6 % (0-6); HEMATOCRIT 46.1 % (42.0-52.0); HEMOGLOBIN 15.4 g/dl (14.0-17.9); LYMPHOCYTES # (AUTO) 0.6 X10'3 (1.1-4.8); LYMPHOCYTES % (AUTO) 12.9 % (21-51); MEAN CORPUSCULAR HEMOGLOBIN 34.8 PG (27.0-31.0); MEAN CORPUSCULAR HGB CONC 33.5 g/dL (33.0-36.5); MEAN CORPUSCULAR VOLUME 103.8 FL (78-98); MEAN PLATELET VOLUME 7.1 FL (7.4-10.4); MONOCYTES # (AUTO) 0.6 X10'3 (0-0.9); MONOCYTES % (AUTO) 13.2 % (2-12); NEUTROPHILS # (AUTO) 2.9 X10'3 (1.8-7.7); NEUTROPHILS % (AUTO) 65.9 % (42-75); PLATELET COUNT 145 X10'3 (140-440); RED BLOOD COUNT 4.44 X10'6 (4.70-6.10); RED CELL DISTRIBUTION WIDTH 18.5 % (11.5-14.5); WHITE BLOOD COUNT 4.4 X10'3 (4.5-11.0)
[2019-02-20 18:46] LABS: ALANINE AMINOTRANSFERASE 9 U/L (12-78); ALBUMIN 3.1 G/DL (3.4-5.0); ALBUMIN/GLOBULIN RATIO 0.6 (1.1-1.5); ALKALINE PHOSPHATASE 109 IU/L (46-116); ANION GAP 5 (8-16); ASPARTATE AMINO TRANSFERASE 40 U/L (10-37); BILIRUBIN,TOTAL 1.7 MG/DL (0.1-1.0); BLOOD UREA NITROGEN 18 MG/DL (7-18); BUN/CREATININE RATIO 15.8 (5.4-32.0); CALCIUM 8.7 MG/DL (8.5-10.1); CHLORIDE 98 MMOL/L (99-107); CREATININE 1.14 MG/DL (0.60-1.10); GLUCOSE 91 MG/DL (70-104); POTASSIUM 4.1 MMOL/L (3.5-5.1); SODIUM 133 MMOL/L (135-145); TOTAL CARBON DIOXIDE 30.5 MMOL/L (24-32); TOTAL PROTEIN 8.3 G/DL (6.4-8.2); eGFR 66 ML/MIN
[2019-02-20 19:38] LABS: PARTIAL THROMBOPLASTIN TIME 32 SECONDS (22-32)
[2019-02-20 19:44] LABS: D-DIMER 2.32 MG/L FEU (0-0.50)
[2019-02-20] MEDS ORDERED: furosemide 10 MG/1 ML 10ml inj IV ONE (20:05)
[2019-02-20] MEDS ORDERED: FURO80TA87 PO (20:08)
[2019-02-20] MEDS ORDERED: iohexol 350MG/ML 100ml bottle IV ONE (20:30)
--- NOTE | 2019-02-20 21:21 | NUR ---
PT PULLED MONITORING LINES OFF, STATES HE IS READY TO GO HOME. EXPLAINED TO PT THAT WE WERE WAITING FOR CT RESULT BEFORE DISCHARGING HIM, IF NORMAL. PT STATED HE WAS NOT GOING TO STAY IN THE HOSPITAL
[2019-02-20 21:40] VITALS: BP 136/91
== END 2019-02-20 21:38 | disposition home or self-care (01) ==
LOC: ER 18:06
DX: R60.9 Edema, unspecified (principal); I25.10 Atherosclerotic heart disease of native coronary artery without angina pectoris; I50.9 Heart failure, unspecified; I11.0 Hypertensive heart disease with heart failure; I25.2 Old myocardial infarction; J44.9 Chronic obstructive pulmonary disease, unspecified; E11.9 Type 2 diabetes mellitus without complications; F15.90 Other stimulant use, unspecified, uncomplicated; Z98.61 Coronary angioplasty status; Z98.890 Other specified postprocedural states; Z88.5 Allergy status to narcotic agent; Z79.82 Long term (current) use of aspirin; Z79.899 Other long term (current) drug therapy
CPT/HCPCS: 36415; 71045; 71275; 80053; 83605; 83880; 84484; 85025; 85379; 85610; 85730; 87040; 93005; 96374; 99284; J1940; Q9967

== ENCOUNTER 2019-02-28 18:50 | Emergency (ER) | payer MEDICARE, MEDICAID ==
[~2019-02-28] VITALS: Ht 170.2 cm; Wt 107.3 kg
[~2019-02-28 18:50] MED LIST changes: +FURO80TA87 PO
[2019-02-28 19:49] LABS: BASOPHILS % (AUTO) 0.6 % (0-1); EOSINOPHILS # (AUTO) 0.2 X10'3 (0-0.9); EOSINOPHILS % (AUTO) 3.9 % (0-6); HEMATOCRIT 43.5 % (42.0-52.0); HEMOGLOBIN 14.7 g/dl (14.0-17.9); LYMPHOCYTES # (AUTO) 0.5 X10'3 (1.1-4.8); LYMPHOCYTES % (AUTO) 9.5 % (21-51); MEAN CORPUSCULAR HEMOGLOBIN 35.3 PG (27.0-31.0); MEAN CORPUSCULAR HGB CONC 33.9 g/dL (33.0-36.5); MEAN CORPUSCULAR VOLUME 104.1 FL (78-98); MEAN PLATELET VOLUME 7.3 FL (7.4-10.4); MONOCYTES # (AUTO) 0.6 X10'3 (0-0.9); MONOCYTES % (AUTO) 12.5 % (2-12); NEUTROPHILS # (AUTO) 3.6 X10'3 (1.8-7.7); NEUTROPHILS % (AUTO) 73.5 % (42-75); PLATELET COUNT 192 X10'3 (140-440); RED BLOOD COUNT 4.18 X10'6 (4.70-6.10); RED CELL DISTRIBUTION WIDTH 19.6 % (11.5-14.5); WHITE BLOOD COUNT 4.8 X10'3 (4.5-11.0)
[2019-02-28 20:02] LABS: ALANINE AMINOTRANSFERASE 6 U/L (12-78); ALBUMIN/GLOBULIN RATIO 0.6 (1.1-1.5); ALKALINE PHOSPHATASE 108 IU/L (46-116); ANION GAP 7 (8-16); ASPARTATE AMINO TRANSFERASE 44 U/L (10-37); BLOOD UREA NITROGEN 22 MG/DL (7-18); BUN/CREATININE RATIO 17.1 (5.4-32.0); CALCIUM 8.4 MG/DL (8.5-10.1); CHLORIDE 97 MMOL/L (99-107); CREATININE 1.29 MG/DL (0.60-1.10); GLUCOSE 96 MG/DL (70-104); POTASSIUM 4.3 MMOL/L (3.5-5.1); SODIUM 131 MMOL/L (135-145); TOTAL CARBON DIOXIDE 27.2 MMOL/L (24-32); TOTAL PROTEIN 8.1 G/DL (6.4-8.2); eGFR 57 ML/MIN
[2019-02-28 20:27] LABS: ANISOCYTOSIS 2+; PLATELET ESTIMATE NORMAL; TARGET CELLS FEW
[2019-02-28] MEDS ORDERED: ipratropium/albuterol 3ml nebule NEB ONE (20:45)
[2019-02-28] MEDS ORDERED: furosemide 10 MG/1 ML 10ml inj IV ONE (20:45)
--- NOTE | 2019-02-28 21:17 | NUR ---
ASSISTING RN WITH PT CARE, PT IS RESTING QUIETLY GURNEY, RESP EVEN AND SLIGHTLY LABORED, FAMILY AT BEDSIDE
[2019-02-28] MEDS ORDERED: FURO80TA87 PO (22:04)
[2019-02-28 22:15] VITALS: BP 121/83
== END 2019-02-28 22:21 | disposition home or self-care (01) ==
LOC: ER 18:51
DX: I50.9 Heart failure, unspecified (principal); I25.10 Atherosclerotic heart disease of native coronary artery without angina pectoris; I11.0 Hypertensive heart disease with heart failure; I25.2 Old myocardial infarction; J44.9 Chronic obstructive pulmonary disease, unspecified; E11.9 Type 2 diabetes mellitus without complications; F15.90 Other stimulant use, unspecified, uncomplicated; Z98.61 Coronary angioplasty status; Z98.890 Other specified postprocedural states; Z88.5 Allergy status to narcotic agent; Z79.82 Long term (current) use of aspirin; Z79.899 Other long term (current) drug therapy
CPT/HCPCS: 36415; 71045; 80053; 83880; 84484; 85025; 93005; 94640; 96374; 99284; J1940; 94760

== ENCOUNTER 2019-03-05 21:46 | Inpatient (IN) | payer MEDICARE, MEDICAID ==
[~2019-03-05] VITALS: Ht 170.2 cm; Wt 116.8 kg
[2019-03-05 00:25] VITALS: BP 114/89
[2019-03-05] MEDS ORDERED: ipratropium/albuterol 3ml nebule NEB ONE (22:05)
[2019-03-05 22:06] LABS: BASOPHILS # (AUTO) 0.1 X10'3 (0-0.2); BASOPHILS % (AUTO) 1.4 % (0-1); EOSINOPHILS # (AUTO) 0.2 X10'3 (0-0.9); EOSINOPHILS % (AUTO) 2.9 % (0-6); HEMATOCRIT 48.4 % (42.0-52.0); HEMOGLOBIN 16.1 g/dl (14.0-17.9); LYMPHOCYTES # (AUTO) 0.7 X10'3 (1.1-4.8); LYMPHOCYTES % (AUTO) 11.8 % (21-51); MEAN CORPUSCULAR HEMOGLOBIN 34.9 PG (27.0-31.0); MEAN CORPUSCULAR HGB CONC 33.2 g/dL (33.0-36.5); MEAN CORPUSCULAR VOLUME 104.8 FL (78-98); MEAN PLATELET VOLUME 6.9 FL (7.4-10.4); MONOCYTES # (AUTO) 0.8 X10'3 (0-0.9); MONOCYTES % (AUTO) 13.5 % (2-12); NEUTROPHILS % (AUTO) 70.4 % (42-75); PLATELET COUNT 187 X10'3 (140-440); RED BLOOD COUNT 4.62 X10'6 (4.70-6.10); RED CELL DISTRIBUTION WIDTH 19.6 % (11.5-14.5); WHITE BLOOD COUNT 5.7 X10'3 (4.5-11.0)
--- NOTE | 2019-03-05 22:07 | NUR ---
PT WITH AUDIBLE WHEEZE, PT REPORTS A NEED FOR A NEBULIZER , DUO NEB ORDERED.
--- NOTE | 2019-03-05 22:21 | NUR ---
RT AT BEDSIDE FOR SVN
[2019-03-05 22:22] LABS: ALANINE AMINOTRANSFERASE 9 U/L (12-78); ALBUMIN 3.2 G/DL (3.4-5.0); ALBUMIN/GLOBULIN RATIO 0.6 (1.1-1.5); ALKALINE PHOSPHATASE 120 IU/L (46-116); ANION GAP 6 (8-16); ASPARTATE AMINO TRANSFERASE 47 U/L (10-37); BILIRUBIN,TOTAL 1.9 MG/DL (0.1-1.0); BLOOD UREA NITROGEN 16 MG/DL (7-18); BUN/CREATININE RATIO 15.8 (5.4-32.0); CALCIUM 8.7 MG/DL (8.5-10.1); CHLORIDE 101 MMOL/L (99-107); CREATININE 1.01 MG/DL (0.60-1.10); GLUCOSE 90 MG/DL (70-104); SODIUM 137 MMOL/L (135-145); TOTAL CARBON DIOXIDE 29.9 MMOL/L (24-32); TOTAL PROTEIN 8.8 G/DL (6.4-8.2); eGFR 76 ML/MIN
[2019-03-05] MEDS ORDERED: furosemide 10 MG/1 ML 10ml inj IV ONE (23:20)
[2019-03-05] MEDS ORDERED: KEN0.1O TOP (23:38)
[2019-03-05] MEDS ORDERED: MUPI22OI30 TOP (23:38)
--- NOTE | 2019-03-05 23:39 | NUR ---
dr lorenzo at bedside for admission. pts mother remains at bedside. current vss.
[2019-03-06] VITALS (7 sets, daily range): BP systolic 96–144; BP diastolic 72–92
[2019-03-06] MEDS ORDERED: magnesium Cl slow-release 64mg tablet PO PRN
[2019-03-06] MEDS ORDERED: ondansetron/PF 4mg/2ml inj IV PRN
[2019-03-06] MEDS ORDERED: acetaminophen 325mg tablet PO PRN
[2019-03-06] MEDS ORDERED: mag hydrox/Alum hydrox/simeth 30ml oral suspension PO PRN
[2019-03-06] MEDS ORDERED: magnesium 2GM in 50ml NS 50 ML IV PRN
[2019-03-06] MEDS ORDERED: magnesium 4gm in 100ml NS 100 ML IV PRN
[2019-03-06] MEDS ORDERED: potassium CL 10mEq/100ml bag 100 ML IV PRN ×2
[2019-03-06] MEDS ORDERED: potassium Cl 20 mEq SR tablet PO PRN ×2
[2019-03-06] MEDS ORDERED: magnesium hydroxide 30ml (MOM) UD suspension PO PRN
[2019-03-06] MEDS ORDERED: non-formulary drug (Albuterol Sulfate Nebs* (Proventil Nebs*) 2.5 MG) IH PRN (00:15)
--- NOTE | 2019-03-06 00:30 | NUR ---
Patient in room ED 2. I have received report from Sabi ED RN and had the opportunity to ask questions and assume patient care.
[2019-03-06] MEDS: ipratropium/albuterol 3ml nebule IH PRN ×2 (04:32→16:12)
--- NOTE | 2019-03-06 06:32 | NUR ---
Patient in room HEMANTH 350. I have received report from JUAN DIEGO Dominique and had the opportunity to ask questions and assume patient care.
--- NOTE | 2019-03-06 06:35 | NUR ---
Problems reprioritized. Patient report given, questions answered & plan of care reviewed with JUAN DIEGO Davis.
[2019-03-06] MEDS: carvedilol 6.25mg tablet PO SCH ×2 (07:40→23:11)
[2019-03-06] MEDS: potassium chloride 8mEq ER tablet PO SCH ×2 (07:40→23:10)
[2019-03-06] MEDS: aspirin 81mg tablet.DR PO SCH (07:40)
--- NOTE | 2019-03-06 07:45 | NUR ---
Pt adamantly refused heparin injection during morning med pass. States 'I'll come to blows with anyone that tries to force that stuff on me'. I attempted to educate pt about heparin but he interrupted to explain that the last time he received heparin he 'swelled up and started leaking fluid from my stomach'. Pt was not receptive to further attempts of education. Will notify MD and continue to monitor.
[2019-03-06] MEDS: heparin, porcine 5000 units/ml vial SQ SCH ×3 (08:00→23:10)
[2019-03-06] MEDS ORDERED: furosemide 10 MG/1 ML 10ml inj IV SCH (08:00)
[2019-03-06] MEDS: K and/or MAG REPLACEMENT MC SCH (08:00)
[2019-03-06] MEDS: lisinopril 5mg tablet PO SCH (10:25)
--- NOTE | 2019-03-06 11:03 | NUR ---
During rounds with hospitalist, pt states that he does not want a life vest, AICD, or any other interventions to sustain his heart. He also states he does not want any life saving interventions should his heart stop. Orders received for dobutamine drip, as well as code status has been changed to DNR. Hospice consult initiated. Family to bring advanced directive. Will continue to monitor.
--- NOTE | 2019-03-06 13:36 | NUR ---
Bladder scan shows 412 ml's urine retained. Hospitalist notified, response pending.
--- NOTE | 2019-03-06 13:49 | NUR ---
Problems reprioritized. Patient report given, questions answered & plan of care reviewed with JUAN DIEGO Chan.
--- NOTE | 2019-03-06 14:00 | NUR ---
Patient in room MED 312. I have received report from Susan ADAMSON from med/surg and had the opportunity to ask questions and assume patient care.
--- NOTE | 2019-03-06 14:05 | NUR ---
pt transferred to ACCE unit with all belongings, family members accompanied
--- NOTE | 2019-03-06 14:15 | NUR ---
Pt in room 112 He is A&O x3, his mother is with him, placed on monitor, pt has no s/s of distress and denies any needs at this time.
[2019-03-06] MEDS: DOBUTamine-DoBUTrex 500mg/D5W 250 ML IV SCH (16:14)
--- NOTE | 2019-03-06 16:36 | NUR ---
Malnutrition consult: "loss of appetite". Pt admit w/ increased weakness, CHF EF 20-25%, COPD. DX severe dilated cardiomyopathy and fluid overload per MD note now receiving lasix. Pt PO meals pending but markedly SOB r/t fluid overload, CHF, and COPD. 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 At this time pt has no significant weakness, no wounds, no wt loss hx, BMI 38, and PO meals pending. Current edema r/t DX and not malnutrition likely. At this time pt does not meet minimum malnutrition criteria. Pt requesting hospice care per MD note today. Will monitor for changes in code status. Addendum: 03/06/19 at [address] Amended: Links added.
[2019-03-06] MEDS: furosemide inj 100 ML IV SCH (17:39)
--- NOTE | 2019-03-06 18:00 | NUR ---
Patient in room MED 312. I have received report from EMMANUEL ADAMSON and had the opportunity to ask questions and assume patient care.
[2019-03-06 22:07] LABS: ALANINE AMINOTRANSFERASE 8 U/L (12-78); ALBUMIN 2.6 G/DL (3.4-5.0); ALBUMIN/GLOBULIN RATIO 0.5 (1.1-1.5); ALKALINE PHOSPHATASE 85 IU/L (46-116); ANION GAP 9 (8-16); ASPARTATE AMINO TRANSFERASE 44 U/L (10-37); BILIRUBIN,TOTAL 2.2 MG/DL (0.1-1.0); BLOOD UREA NITROGEN 21 MG/DL (7-18); BUN/CREATININE RATIO 19.1 (5.4-32.0); CALCIUM 8.1 MG/DL (8.5-10.1); CHLORIDE 100 MMOL/L (99-107); GLUCOSE 116 MG/DL (70-104); MAGNESIUM 1.8 MG/DL (1.5-2.4); POTASSIUM 4.2 MMOL/L (3.5-5.1); SODIUM 135 MMOL/L (135-145); TOTAL CARBON DIOXIDE 26.5 MMOL/L (24-32); TOTAL PROTEIN 7.4 G/DL (6.4-8.2); eGFR 69 ML/MIN
[2019-03-07] VITALS (12 sets, daily range): BP systolic 96–116; BP diastolic 70–89
[2019-03-07] MEDS: ipratropium/albuterol 3ml nebule IH PRN ×3 (00:05→20:19)
[2019-03-07 00:11] LABS: URINE AMPHETAMINE SCREEN NEGATIVE (Neg); URINE BARBITUATE SCREEN NEGATIVE (Neg); URINE BENZODIAZEPINES SCREEN NEGATIVE (Neg); URINE CANNABINOID SCREEN NEGATIVE (Neg); URINE COCAINE SCREEN NEGATIVE (Neg); URINE METHADONE SCREEN NEGATIVE (Neg); URINE OPIATE SCREEN NEGATIVE (Neg); URINE PHENCYCLIDINE SCREEN NEGATIVE (Neg)
--- NOTE | 2019-03-07 00:45 | NUR ---
Notified by gas charger that patients Lasix drip infusing at incorrect rate, spoke with Dr Dobson and received order to hold drip x 2 hrs and continue to monitor labs and correct electrolytes as needed.
[2019-03-07] MEDS: DOBUTamine-DoBUTrex 500mg/D5W 250 ML IV SCH ×3 (01:45→23:28)
[2019-03-07 05:16] LABS: BASOPHILS # (AUTO) 0.1 X10'3 (0-0.2); BASOPHILS % (AUTO) 1.3 % (0-1); EOSINOPHILS # (AUTO) 0.2 X10'3 (0-0.9); EOSINOPHILS % (AUTO) 3.4 % (0-6); HEMATOCRIT 42.3 % (42.0-52.0); HEMOGLOBIN 14.2 g/dl (14.0-17.9); LYMPHOCYTES # (AUTO) 0.7 X10'3 (1.1-4.8); MEAN CORPUSCULAR HEMOGLOBIN 35.1 PG (27.0-31.0); MEAN CORPUSCULAR HGB CONC 33.5 g/dL (33.0-36.5); MEAN CORPUSCULAR VOLUME 104.6 FL (78-98); MEAN PLATELET VOLUME 7.2 FL (7.4-10.4); MONOCYTES # (AUTO) 0.8 X10'3 (0-0.9); MONOCYTES % (AUTO) 15.3 % (2-12); NEUTROPHILS # (AUTO) 3.5 X10'3 (1.8-7.7); PLATELET COUNT 171 X10'3 (140-440); RED BLOOD COUNT 4.05 X10'6 (4.70-6.10); RED CELL DISTRIBUTION WIDTH 18.6 % (11.5-14.5); WHITE BLOOD COUNT 5.3 X10'3 (4.5-11.0)
[2019-03-07 05:39] LABS: ALANINE AMINOTRANSFERASE 7 U/L (12-78); ALBUMIN 2.6 G/DL (3.4-5.0); ALBUMIN/GLOBULIN RATIO 0.6 (1.1-1.5); ALKALINE PHOSPHATASE 83 IU/L (46-116); ANION GAP 5 (8-16); ASPARTATE AMINO TRANSFERASE 40 U/L (10-37); BILIRUBIN,TOTAL 2.1 MG/DL (0.1-1.0); BLOOD UREA NITROGEN 21 MG/DL (7-18); CALCIUM 8.2 MG/DL (8.5-10.1); CHLORIDE 100 MMOL/L (99-107); CREATININE 1.05 MG/DL (0.60-1.10); GLUCOSE 108 MG/DL (70-104); MAGNESIUM 1.7 MG/DL (1.5-2.4); PHOSPHORUS 4.2 MG/DL (2.3-4.5); POTASSIUM 3.8 MMOL/L (3.5-5.1); SODIUM 137 MMOL/L (135-145); TOTAL CARBON DIOXIDE 31.7 MMOL/L (24-32); TOTAL PROTEIN 7.2 G/DL (6.4-8.2); eGFR 73 ML/MIN
--- NOTE | 2019-03-07 06:00 | NUR ---
Problems reprioritized. Patient report given, questions answered & plan of care reviewed with Rocio ADAMSON.
[2019-03-07] MEDS: furosemide inj 100 ML IV SCH (06:56)
[2019-03-07] MEDS: K and/or MAG REPLACEMENT MC SCH (07:30)
[2019-03-07] MEDS: potassium chloride 8mEq ER tablet PO SCH ×2 (07:30→21:33)
[2019-03-07] MEDS: carvedilol 6.25mg tablet PO SCH ×2 (07:30→21:34)
[2019-03-07] MEDS: lisinopril 5mg tablet PO SCH ×2 (07:30→07:34)
[2019-03-07] MEDS: aspirin 81mg tablet.DR PO SCH (07:30)
[2019-03-07] MEDS: heparin, porcine 5000 units/ml vial SQ SCH ×2 (07:34→20:00)
[2019-03-07 09:38] LABS: ALBUMIN 2.7 G/DL (3.4-5.0); ANION GAP 5 (8-16); BLOOD UREA NITROGEN 22 MG/DL (7-18); BUN/CREATININE RATIO 20.8 (5.4-32.0); CALCIUM 8.3 MG/DL (8.5-10.1); CHLORIDE 99 MMOL/L (99-107); CREATININE 1.06 MG/DL (0.60-1.10); GLUCOSE 157 MG/DL (70-104); MAGNESIUM 1.7 MG/DL (1.5-2.4); POTASSIUM 3.5 MMOL/L (3.5-5.1); SODIUM 135 MMOL/L (135-145); TOTAL CARBON DIOXIDE 30.9 MMOL/L (24-32); eGFR 72 ML/MIN
[2019-03-07 16:44] LABS: ALBUMIN 2.7 G/DL (3.4-5.0); ANION GAP 3 (8-16); BLOOD UREA NITROGEN 21 MG/DL (7-18); BUN/CREATININE RATIO 20.4 (5.4-32.0); CALCIUM 8.5 MG/DL (8.5-10.1); CHLORIDE 99 MMOL/L (99-107); CREATININE 1.03 MG/DL (0.60-1.10); GLUCOSE 112 MG/DL (70-104); MAGNESIUM 1.8 MG/DL (1.5-2.4); PHOSPHORUS 4.1 MG/DL (2.3-4.5); POTASSIUM 3.8 MMOL/L (3.5-5.1); SODIUM 135 MMOL/L (135-145); TOTAL CARBON DIOXIDE 32.6 MMOL/L (24-32); eGFR 74 ML/MIN
--- NOTE | 2019-03-07 17:20 | NUR ---
RESPIRATORY PAGED 312: ALEXIA - REQUESTING TREATMENT, SOB. TY
--- NOTE | 2019-03-07 18:00 | NUR ---
Patient in room MED 312. I have received report from EMMANUEL ADAMSON and had the opportunity to ask questions and assume patient care.
[2019-03-07 21:19] LABS: ALBUMIN 2.8 G/DL (3.4-5.0); ANION GAP 6 (8-16); BLOOD UREA NITROGEN 21 MG/DL (7-18); BUN/CREATININE RATIO 18.9 (5.4-32.0); CALCIUM 8.4 MG/DL (8.5-10.1); CHLORIDE 98 MMOL/L (99-107); CREATININE 1.11 MG/DL (0.60-1.10); GLUCOSE 114 MG/DL (70-104); MAGNESIUM 1.8 MG/DL (1.5-2.4); PHOSPHORUS 4.3 MG/DL (2.3-4.5); POTASSIUM 3.5 MMOL/L (3.5-5.1); SODIUM 136 MMOL/L (135-145); TOTAL CARBON DIOXIDE 32.4 MMOL/L (24-32); eGFR 68 ML/MIN
[2019-03-08] VITALS (13 sets, daily range): BP systolic 87–116; BP diastolic 61–88
[2019-03-08 03:26] LABS: BASOPHILS # (AUTO) 0.1 X10'3 (0-0.2); BASOPHILS % (AUTO) 1.3 % (0-1); EOSINOPHILS # (AUTO) 0.2 X10'3 (0-0.9); HEMATOCRIT 45.3 % (42.0-52.0); HEMOGLOBIN 15.2 g/dl (14.0-17.9); LYMPHOCYTES # (AUTO) 0.7 X10'3 (1.1-4.8); LYMPHOCYTES % (AUTO) 12.5 % (21-51); MEAN CORPUSCULAR HEMOGLOBIN 34.9 PG (27.0-31.0); MEAN CORPUSCULAR HGB CONC 33.5 g/dL (33.0-36.5); MEAN CORPUSCULAR VOLUME 104.4 FL (78-98); MEAN PLATELET VOLUME 7.3 FL (7.4-10.4); MONOCYTES # (AUTO) 0.7 X10'3 (0-0.9); MONOCYTES % (AUTO) 13.3 % (2-12); NEUTROPHILS # (AUTO) 3.8 X10'3 (1.8-7.7); NEUTROPHILS % (AUTO) 69.9 % (42-75); PLATELET COUNT 167 X10'3 (140-440); RED BLOOD COUNT 4.34 X10'6 (4.70-6.10); RED CELL DISTRIBUTION WIDTH 18.9 % (11.5-14.5); WHITE BLOOD COUNT 5.5 X10'3 (4.5-11.0)
[2019-03-08 03:34] LABS: ALANINE AMINOTRANSFERASE 6 U/L (12-78); ALBUMIN 2.9 G/DL (3.4-5.0); ALBUMIN/GLOBULIN RATIO 0.6 (1.1-1.5); ALKALINE PHOSPHATASE 90 IU/L (46-116); ANION GAP 6 (8-16); ASPARTATE AMINO TRANSFERASE 40 U/L (10-37); BILIRUBIN,TOTAL 1.8 MG/DL (0.1-1.0); BLOOD UREA NITROGEN 22 MG/DL (7-18); BUN/CREATININE RATIO 19.6 (5.4-32.0); CALCIUM 8.4 MG/DL (8.5-10.1); CHLORIDE 98 MMOL/L (99-107); CREATININE 1.12 MG/DL (0.60-1.10); GLUCOSE 91 MG/DL (70-104); MAGNESIUM 1.8 MG/DL (1.5-2.4); PHOSPHORUS 4.2 MG/DL (2.3-4.5); SODIUM 134 MMOL/L (135-145); TOTAL PROTEIN 7.9 G/DL (6.4-8.2); eGFR 67 ML/MIN
--- NOTE | 2019-03-08 05:43 | NUR ---
pts 2 hour vitals have been difficult to chart, pt is noncompliant at wearing his BP cuff
--- NOTE | 2019-03-08 06:00 | NUR ---
Problems reprioritized. Patient report given, questions answered & plan of care reviewed with Karla ADAMSON.
--- NOTE | 2019-03-08 06:40 | NUR ---
Patient in room MED 312. I have received report from JUAN DIEGO Vizcarra and had the opportunity to ask questions and assume patient care.
[2019-03-08 07:00] LABS: PLATELET ESTIMATE NORMAL
[2019-03-08 07:01] LABS: ANISOCYTOSIS 2+; ROULEAUX 1+; TARGET CELLS FEW
[2019-03-08] MEDS: K and/or MAG REPLACEMENT MC SCH (07:17)
[2019-03-08] MEDS: heparin, porcine 5000 units/ml vial SQ SCH ×2 (07:17→20:00)
[2019-03-08] MEDS: aspirin 81mg tablet.DR PO SCH (08:11)
[2019-03-08] MEDS: potassium chloride 8mEq ER tablet PO SCH ×2 (08:11→21:20)
[2019-03-08] MEDS: carvedilol 6.25mg tablet PO SCH ×2 (08:14→20:00)
[2019-03-08] MEDS: lisinopril 5mg tablet PO SCH (08:14)
[2019-03-08 09:29] LABS: ALBUMIN 2.7 G/DL (3.4-5.0); ANION GAP 4 (8-16); BLOOD UREA NITROGEN 21 MG/DL (7-18); BUN/CREATININE RATIO 19.6 (5.4-32.0); CALCIUM 8.2 MG/DL (8.5-10.1); CHLORIDE 98 MMOL/L (99-107); CREATININE 1.07 MG/DL (0.60-1.10); GLUCOSE 129 MG/DL (70-104); MAGNESIUM 1.7 MG/DL (1.5-2.4); PHOSPHORUS 3.9 MG/DL (2.3-4.5); POTASSIUM 3.6 MMOL/L (3.5-5.1); SODIUM 134 MMOL/L (135-145); TOTAL CARBON DIOXIDE 32.2 MMOL/L (24-32); eGFR 71 ML/MIN
[2019-03-08] MEDS: furosemide inj 100 ML IV SCH (10:35)
[2019-03-08 15:11] LABS: ALBUMIN 2.7 G/DL (3.4-5.0); ANION GAP 4 (8-16); BLOOD UREA NITROGEN 21 MG/DL (7-18); BUN/CREATININE RATIO 20.6 (5.4-32.0); CALCIUM 8.4 MG/DL (8.5-10.1); CHLORIDE 98 MMOL/L (99-107); CREATININE 1.02 MG/DL (0.60-1.10); GLUCOSE 93 MG/DL (70-104); MAGNESIUM 1.8 MG/DL (1.5-2.4); PHOSPHORUS 4.3 MG/DL (2.3-4.5); POTASSIUM 3.9 MMOL/L (3.5-5.1); SODIUM 135 MMOL/L (135-145); TOTAL CARBON DIOXIDE 32.8 MMOL/L (24-32); eGFR 75 ML/MIN
--- NOTE | 2019-03-08 18:40 | NUR ---
Problems reprioritized. Patient report given, questions answered & plan of care reviewed with JUAN DIEGO Frye
--- NOTE | 2019-03-08 19:24 | NUR ---
REPORT REC'D FROM JUAN DIEGO ABRAHAM.
[2019-03-08] MEDS: ipratropium/albuterol 3ml nebule IH PRN (20:42)
[2019-03-08 21:25] LABS: ALBUMIN 2.6 G/DL (3.4-5.0); ANION GAP 4 (8-16); BLOOD UREA NITROGEN 22 MG/DL (7-18); CALCIUM 8.3 MG/DL (8.5-10.1); CHLORIDE 97 MMOL/L (99-107); GLUCOSE 101 MG/DL (70-104); MAGNESIUM 1.7 MG/DL (1.5-2.4); PHOSPHORUS 4.4 MG/DL (2.3-4.5); POTASSIUM 3.8 MMOL/L (3.5-5.1); SODIUM 134 MMOL/L (135-145); TOTAL CARBON DIOXIDE 32.8 MMOL/L (24-32); eGFR 69 ML/MIN
[2019-03-09] VITALS (7 sets, daily range): BP systolic 94–111; BP diastolic 68–82
--- NOTE | 2019-03-09 02:50 | NUR ---
PT IS REFUSING O2 AT THIS TIME, HAS BEEN UP TO BEDSIDE TO VOID IN URINAL, IS SOB.
[2019-03-09 03:01] LABS: ALBUMIN 2.8 G/DL (3.4-5.0); ANION GAP 6 (8-16); BLOOD UREA NITROGEN 24 MG/DL (7-18); BUN/CREATININE RATIO 21.8 (5.4-32.0); CALCIUM 8.5 MG/DL (8.5-10.1); CHLORIDE 96 MMOL/L (99-107); GLUCOSE 130 MG/DL (70-104); MAGNESIUM 1.7 MG/DL (1.5-2.4); PHOSPHORUS 4.3 MG/DL (2.3-4.5); POTASSIUM 4.1 MMOL/L (3.5-5.1); SODIUM 132 MMOL/L (135-145); TOTAL CARBON DIOXIDE 29.6 MMOL/L (24-32); eGFR 69 ML/MIN
[2019-03-09 03:02] LABS: BASOPHILS # (AUTO) 0.1 X10'3 (0-0.2); BASOPHILS % (AUTO) 1.6 % (0-1); EOSINOPHILS # (AUTO) 0.1 X10'3 (0-0.9); EOSINOPHILS % (AUTO) 2.8 % (0-6); HEMATOCRIT 46.7 % (42.0-52.0); HEMOGLOBIN 15.7 g/dl (14.0-17.9); LYMPHOCYTES # (AUTO) 0.6 X10'3 (1.1-4.8); LYMPHOCYTES % (AUTO) 10.5 % (21-51); MEAN CORPUSCULAR HGB CONC 33.5 g/dL (33.0-36.5); MEAN CORPUSCULAR VOLUME 104.4 FL (78-98); MEAN PLATELET VOLUME 7.3 FL (7.4-10.4); MONOCYTES # (AUTO) 0.6 X10'3 (0-0.9); MONOCYTES % (AUTO) 10.5 % (2-12); NEUTROPHILS % (AUTO) 74.6 % (42-75); PLATELET COUNT 169 X10'3 (140-440); RED BLOOD COUNT 4.47 X10'6 (4.70-6.10); RED CELL DISTRIBUTION WIDTH 19.1 % (11.5-14.5); WHITE BLOOD COUNT 5.3 X10'3 (4.5-11.0)
[2019-03-09 03:05] LABS: ALANINE AMINOTRANSFERASE 10 U/L (12-78); ALBUMIN 2.8 G/DL (3.4-5.0); ALBUMIN/GLOBULIN RATIO 0.5 (1.1-1.5); ALKALINE PHOSPHATASE 99 IU/L (46-116); ANION GAP 6 (8-16); ASPARTATE AMINO TRANSFERASE 38 U/L (10-37); BILIRUBIN,TOTAL 1.6 MG/DL (0.1-1.0); BLOOD UREA NITROGEN 23 MG/DL (7-18); BUN/CREATININE RATIO 20.2 (5.4-32.0); CALCIUM 8.5 MG/DL (8.5-10.1); CHLORIDE 96 MMOL/L (99-107); CREATININE 1.14 MG/DL (0.60-1.10); PHOSPHORUS 4.3 MG/DL (2.3-4.5); POTASSIUM 4.1 MMOL/L (3.5-5.1); SODIUM 132 MMOL/L (135-145); TOTAL CARBON DIOXIDE 30.1 MMOL/L (24-32); TOTAL PROTEIN 7.9 G/DL (6.4-8.2); eGFR 66 ML/MIN
[2019-03-09 03:08] LABS: GLUCOSE 126 MG/DL (70-104)
--- NOTE | 2019-03-09 04:35 | NUR ---
PT SATS FALLING INTO THE HIGH 70'S WHILE UP TO BEDSIDE URINATING. EXPLAINED AND ENCOURAGED PT TO WEAR O2. SATS BACK UP TO MID 90'S WITH O2/NC.
--- NOTE | 2019-03-09 06:20 | NUR ---
Patient in room MED 312. I have received report from JUAN DIEGO Frye and had the opportunity to ask questions and assume patient care.
--- NOTE | 2019-03-09 06:35 | NUR ---
REPORT GIVEN TO JUAN DIEGO GILMORE.
[2019-03-09 07:08] LABS: ANISOCYTOSIS 2+; PLATELET ESTIMATE NORMAL
[2019-03-09] MEDS: heparin, porcine 5000 units/ml vial SQ SCH (07:24)
[2019-03-09] MEDS: potassium chloride 8mEq ER tablet PO SCH (07:31)
[2019-03-09] MEDS: aspirin 81mg tablet.DR PO SCH (07:31)
[2019-03-09] MEDS: carvedilol 6.25mg tablet PO SCH (07:31)
[2019-03-09] MEDS: lisinopril 5mg tablet PO SCH (07:36)
[2019-03-09] MEDS: K and/or MAG REPLACEMENT MC SCH (07:37)
[2019-03-09 09:56] LABS: ALBUMIN 2.7 G/DL (3.4-5.0); ANION GAP 1 (8-16); BLOOD UREA NITROGEN 24 MG/DL (7-18); BUN/CREATININE RATIO 23.1 (5.4-32.0); CALCIUM 8.4 MG/DL (8.5-10.1); CHLORIDE 96 MMOL/L (99-107); CREATININE 1.04 MG/DL (0.60-1.10); GLUCOSE 92 MG/DL (70-104); MAGNESIUM 1.8 MG/DL (1.5-2.4); PHOSPHORUS 4.3 MG/DL (2.3-4.5); SODIUM 132 MMOL/L (135-145); TOTAL CARBON DIOXIDE 35.5 MMOL/L (24-32); eGFR 73 ML/MIN
[2019-03-09] MEDS: ipratropium/albuterol 3ml nebule IH PRN (10:04)
[2019-03-09] MEDS ORDERED: albumin (human) 25% 100 ML IV solution IV ONE (11:35)
--- NOTE | 2019-03-09 12:00 | NUR ---
Patient refused post-op vital signs after paracentesis. Educated on importance of monitoring VS. Patient A&Ox4, no s/sx of distress. Tolerated procedure well.
--- NOTE | 2019-03-09 13:24 | NUR ---
Called report to Susan at [facility]. All questions answered.
--- NOTE | 2019-03-09 13:55 | NUR ---
Patient stable for transfer per MD orders. TMS sent with patient. 2 PIVs discontinued, cannulas intact. Clean, dry, dressings in place. Gauze dressing from paracentesis R abdomen clean, dry intact. Report called to [facility]. personnel monitor removed. All belongings collected and sent with patient. Patient's mother made aware of transfer at 1230. [facility] personnel wheeled patient off of unit at 1355.
[2019-04-05] MEDS ORDERED: ASPI-1053 (04:13)
== END 2019-03-09 13:50 | DRG 917 ==
LOC: ER 21:47 → ED HOLD 03-06 00:21 → SUR 3N 03-06 00:30 → MED 3N 03-06 14:05
PROVIDERS: ADMIT Internal Medicine; ATTEND Family Medicine
PROC: 0W9G3ZZ Drainage of Peritoneal Cavity, Percutaneous Approach (ICD-10-PCS; principal; 2019-03-09)
DX: T43.621A Poisoning by amphetamines, accidental (unintentional), initial encounter (principal); I50.23 Acute on chronic systolic (congestive) heart failure; R18.8 Other ascites; F15.20 Other stimulant dependence, uncomplicated; I42.0 Dilated cardiomyopathy; I42.7 Cardiomyopathy due to drug and external agent; I11.0 Hypertensive heart disease with heart failure; J44.9 Chronic obstructive pulmonary disease, unspecified; B19.20 Unspecified viral hepatitis C without hepatic coma; T43.625A Adverse effect of amphetamines, initial encounter; K72.90 Hepatic failure, unspecified without coma; E11.9 Type 2 diabetes mellitus without complications; Z66 Do not resuscitate; I25.10 Atherosclerotic heart disease of native coronary artery without angina pectoris; I25.2 Old myocardial infarction; Z88.5 Allergy status to narcotic agent; Z98.61 Coronary angioplasty status; Y92.89 Other specified places as the place of occurrence of the external cause
CPT/HCPCS: 36415; 49083; 71045; 80053; 80069; 80305; 83735; 83880; 84100; 84443; 84484; 85025; 87081; 93005; 94640; 94760; 96374; 97116; 97162; 97530; 99285; GO378; J1250; J1644; J1940; P9047

== ENCOUNTER 2019-03-13 18:24 | Emergency (ER) | payer MEDICARE, MEDICAID ==
[~2019-03-13] VITALS: Ht 170.2 cm; Wt 114.9 kg
[~2019-03-13 18:24] MED LIST changes: -ACET-812 PO; +KEN0.1O TOP; +MUPI22OI30 TOP
[2019-03-13] MEDS ORDERED: furosemide 10 MG/1 ML 10ml inj IV ONE (20:00)
[2019-03-13 20:24] LABS: BASOPHILS # (AUTO) 0.1 X10'3 (0-0.2); BASOPHILS % (AUTO) 0.8 % (0-1); EOSINOPHILS # (AUTO) 0.2 X10'3 (0-0.9); EOSINOPHILS % (AUTO) 2.9 % (0-6); HEMATOCRIT 44.7 % (42.0-52.0); HEMOGLOBIN 15.1 g/dl (14.0-17.9); LYMPHOCYTES # (AUTO) 0.5 X10'3 (1.1-4.8); LYMPHOCYTES % (AUTO) 7.6 % (21-51); MEAN CORPUSCULAR HEMOGLOBIN 34.7 PG (27.0-31.0); MEAN CORPUSCULAR HGB CONC 33.7 g/dL (33.0-36.5); MEAN CORPUSCULAR VOLUME 103.1 FL (78-98); MEAN PLATELET VOLUME 7.1 FL (7.4-10.4); MONOCYTES # (AUTO) 0.8 X10'3 (0-0.9); MONOCYTES % (AUTO) 10.8 % (2-12); NEUTROPHILS # (AUTO) 5.6 X10'3 (1.8-7.7); NEUTROPHILS % (AUTO) 77.9 % (42-75); PLATELET COUNT 152 X10'3 (140-440); RED BLOOD COUNT 4.33 X10'6 (4.70-6.10); RED CELL DISTRIBUTION WIDTH 18.7 % (11.5-14.5); WHITE BLOOD COUNT 7.2 X10'3 (4.5-11.0)
[2019-03-13 20:32] LABS: ALANINE AMINOTRANSFERASE 11 U/L (12-78); ALBUMIN 2.7 G/DL (3.4-5.0); ALBUMIN/GLOBULIN RATIO 0.6 (1.1-1.5); ALKALINE PHOSPHATASE 101 IU/L (46-116); ANION GAP 1 (8-16); ASPARTATE AMINO TRANSFERASE 40 U/L (10-37); BILIRUBIN,TOTAL 1.4 MG/DL (0.1-1.0); BLOOD UREA NITROGEN 29 MG/DL (7-18); BUN/CREATININE RATIO 26.1 (5.4-32.0); CALCIUM 7.5 MG/DL (8.5-10.1); CHLORIDE 97 MMOL/L (99-107); CREATININE 1.11 MG/DL (0.60-1.10); GLUCOSE 101 MG/DL (70-104); LIPASE 240 U/L (73-393); POTASSIUM 4.3 MMOL/L (3.5-5.1); SODIUM 132 MMOL/L (135-145); TOTAL CARBON DIOXIDE 33.7 MMOL/L (24-32); TOTAL PROTEIN 7.1 G/DL (6.4-8.2); eGFR 68 ML/MIN
[2019-03-13 21:20] VITALS: BP 114/61
--- NOTE | 2019-03-13 21:56 | NUR ---
CALLED KATE AT 21:54 SKYLER TRINH
== END 2019-03-13 22:48 | disposition home or self-care (01) ==
LOC: ER 18:24
DX: E87.70 Fluid overload, unspecified (principal); R18.8 Other ascites; I25.10 Atherosclerotic heart disease of native coronary artery without angina pectoris; I11.0 Hypertensive heart disease with heart failure; I50.9 Heart failure, unspecified; I25.2 Old myocardial infarction; J44.9 Chronic obstructive pulmonary disease, unspecified; E11.9 Type 2 diabetes mellitus without complications; F15.90 Other stimulant use, unspecified, uncomplicated; F10.99 Alcohol use, unspecified with unspecified alcohol-induced disorder; Z98.61 Coronary angioplasty status; Z98.890 Other specified postprocedural states; Z88.5 Allergy status to narcotic agent; Z79.82 Long term (current) use of aspirin; Z79.899 Other long term (current) drug therapy; Y90.9 Presence of alcohol in blood, level not specified
CPT/HCPCS: 80053; 83605; 83690; 85025; 96374; 99284; J1940

== ENCOUNTER 2019-03-17 06:54 | Day surgery (SDC) | payer MEDICARE, MEDICAID ==
[~2019-03-17] VITALS: Ht 170.2 cm; Wt 116.0 kg
[2019-03-17] MEDS ORDERED: normal saline 1000ml 1,000 ML IV PRN (07:30)
[2019-03-17] MEDS ORDERED: albumin 25% 100mL bottle x 1 IV PRN (07:30)
[2019-03-17] MEDS ORDERED: LISI-604 PO (07:34)
[2019-03-17] MEDS ORDERED: MULT-1085 PO (07:34)
[2019-03-17] MEDS ORDERED: SENN-162 PO (07:34)
[2019-03-17] MEDS ORDERED: FURO80TA87 PO (07:34)
[2019-03-17] MEDS ORDERED: MELA5TAB12 PO (07:34)
[2019-03-17] MEDS ORDERED: ACET-2144 PO (07:37)
[2019-03-17] MEDS ORDERED: NA P230E (07:37)
[2019-03-17] MEDS ORDERED: BISA10SU60 RC (07:37)
[2019-03-17] MEDS ORDERED: MAGN400O6 PO (07:37)
[2019-03-17 07:42] VITALS: BP 106/77
[2019-03-17 08:19] VITALS: BP 107/76
[2019-03-17 08:30] VITALS: BP 97/75
[2019-03-17 08:46] VITALS: BP 100/69
== END 2019-03-17 08:55 | disposition home or self-care (01) ==
LOC: SSTAY O 06:54
PROVIDERS: ATTEND Radiology Diagnostic Radiology
DX: R18.8 Other ascites (principal); I25.10 Atherosclerotic heart disease of native coronary artery without angina pectoris; I11.0 Hypertensive heart disease with heart failure; I50.9 Heart failure, unspecified; I25.2 Old myocardial infarction; J44.9 Chronic obstructive pulmonary disease, unspecified; E11.9 Type 2 diabetes mellitus without complications; F15.90 Other stimulant use, unspecified, uncomplicated; Z98.890 Other specified postprocedural states; Z88.5 Allergy status to narcotic agent; Z79.899 Other long term (current) drug therapy
CPT/HCPCS: 49083; C1729; J7030

== ENCOUNTER 2019-03-30 15:14 | Inpatient (IN) | payer MEDICARE, MEDICAID ==
[~2019-03-30] VITALS: Ht 170.2 cm; Wt 113.0 kg
[~2019-03-30 15:14] MED LIST changes: +ACET-2144 PO; -ASPI-1071 PO; +BISA10SU60 RC; -BUDE0.256 IH; -FURO-150 PO; -IPRA3AMP31 IH; -KEN0.1O TOP; +LISI-604 PO; +MAGN400O6 PO; +MELA5TAB12 PO; +MULT-1085 PO; -MUPI22OI30 TOP; +NA P230E; -POTA10CA44 PO; +SENN-162 PO
[2019-03-30] MEDS ORDERED: furosemide 10 MG/1 ML 10ml inj IV ONE (15:40)
[2019-03-30 15:49] LABS: BASOPHILS # (AUTO) 0.1 X10'3 (0-0.2); BASOPHILS % (AUTO) 0.5 % (0-1); EOSINOPHILS # (AUTO) 0.1 X10'3 (0-0.9); HEMATOCRIT 42.6 % (42.0-52.0); HEMOGLOBIN 14.3 g/dl (14.0-17.9); LYMPHOCYTES # (AUTO) 0.4 X10'3 (1.1-4.8); LYMPHOCYTES % (AUTO) 4.5 % (21-51); MEAN CORPUSCULAR HEMOGLOBIN 35.1 PG (27.0-31.0); MEAN CORPUSCULAR HGB CONC 33.6 g/dL (33.0-36.5); MEAN CORPUSCULAR VOLUME 104.6 FL (78-98); MEAN PLATELET VOLUME 6.9 FL (7.4-10.4); MONOCYTES # (AUTO) 0.8 X10'3 (0-0.9); MONOCYTES % (AUTO) 8.7 % (2-12); NEUTROPHILS # (AUTO) 8.3 X10'3 (1.8-7.7); NEUTROPHILS % (AUTO) 85.3 % (42-75); PLATELET COUNT 200 X10'3 (140-440); RED BLOOD COUNT 4.07 X10'6 (4.70-6.10); RED CELL DISTRIBUTION WIDTH 18.2 % (11.5-14.5); WHITE BLOOD COUNT 9.7 X10'3 (4.5-11.0)
[2019-03-30 16:16] LABS: ALANINE AMINOTRANSFERASE 12 U/L (12-78); ALBUMIN 2.7 G/DL (3.4-5.0); ALBUMIN/GLOBULIN RATIO 0.6 (1.1-1.5); ALKALINE PHOSPHATASE 99 IU/L (46-116); ANION GAP -4 (8-16); ASPARTATE AMINO TRANSFERASE 40 U/L (10-37); BILIRUBIN,TOTAL 1.7 MG/DL (0.1-1.0); BLOOD UREA NITROGEN 27 MG/DL (7-18); BUN/CREATININE RATIO 24.8 (5.4-32.0); CALCIUM 8.8 MG/DL (8.5-10.1); CHLORIDE 99 MMOL/L (99-107); CREATININE 1.09 MG/DL (0.60-1.10); GLUCOSE 111 MG/DL (70-104); MAGNESIUM 2.2 MG/DL (1.5-2.4); SODIUM 134 MMOL/L (135-145); TOTAL CARBON DIOXIDE 38.7 MMOL/L (24-32); TOTAL PROTEIN 7.4 G/DL (6.4-8.2); eGFR 69 ML/MIN
[2019-03-30 16:32] LABS: POTASSIUM 6.5 MMOL/L (3.5-5.1)
[2019-03-30] MEDS ORDERED: dextrose 50%-water 50ml dispensing syringe IV ONE (16:40)
[2019-03-30] MEDS ORDERED: insulin regular, human 10 units/0.1 ml syringe IV ONE (16:40)
[2019-03-30] MEDS ORDERED: calcium chloride 100 MG/1 ML inj IV ONE (16:40)
[2019-03-30] MEDS ORDERED: sodium polystyrene sulfonate 15gm/60ml oral suspension PO ONE (16:40)
[2019-03-30] MEDS ORDERED: diphenhydrAMINE 25mg capsule PO PRN (17:00)
[2019-03-30] MEDS ORDERED: metoclopramide 5 mg/ml inj IV PRN (17:00)
[2019-03-30] MEDS ORDERED: acetaminophen 325mg tablet PO PRN ×2 (17:00)
[2019-03-30] MEDS ORDERED: bisacodyl 10mg suppository rectal RC PRN (17:00)
[2019-03-30] MEDS ORDERED: potassium Cl 20 mEq SR tablet PO PRN ×2 (17:00)
[2019-03-30] MEDS ORDERED: magnesium 4gm in 100ml NS 100 ML IV PRN (17:00)
[2019-03-30] MEDS ORDERED: magnesium Cl slow-release 64mg tablet PO PRN (17:00)
[2019-03-30] MEDS ORDERED: mag hydrox/Alum hydrox/simeth 30ml oral suspension PO PRN (17:00)
[2019-03-30] MEDS ORDERED: ondansetron/PF 4mg/2ml inj IV PRN (17:00)
[2019-03-30] MEDS ORDERED: diphenhydrAMINE 50 mg/ml inj IV PRN (17:00)
[2019-03-30] MEDS ORDERED: magnesium hydroxide 30ml (MOM) UD suspension PO PRN (17:00)
[2019-03-30] MEDS ORDERED: potassium CL 10mEq/100ml bag 100 ML IV PRN ×2 (17:00)
[2019-03-30] MEDS ORDERED: magnesium 2GM in 50ml NS 50 ML IV PRN (17:00)
[2019-03-30] MEDS ORDERED: KEN0.1O TP (17:11)
[2019-03-30] MEDS ORDERED: LISI-600 PO (17:11)
[2019-03-30] MEDS ORDERED: CARV6.253 PO (17:11)
[2019-03-30] MEDS ORDERED: FURO40TA4 PO (17:11)
[2019-03-30] MEDS ORDERED: POTA8TAB57 PO (17:11)
[2019-03-30] MEDS: furosemide inj 100 MG in normal saline 100ml IV soln 90 ML IV SCH (17:57)
[2019-03-30] MEDS ORDERED: ipratropium/albuterol 3ml nebule NEB PRN (18:15)
--- NOTE | 2019-03-30 18:34 | NUR ---
Patient resting comfortably and in no distress. Patient placed in a gown. Patient updated on POC.
--- NOTE | 2019-03-30 19:16 | NUR ---
PT ASSISTED W/2 PERSON MOD ASSIST UP TO BSC TO HAVE BM. LASIX GTT INFUSING. PT A&OX4. PROVIDED CALL LIGHT. AWAITING IPA.
[2019-03-30] MEDS: CefTRIAXone/D5W-Rocephin 1gm 50 ML IV SCH (19:26)
[2019-03-30] MEDS: K and/or MAG REPLACEMENT MC SCH (19:27)
[2019-03-30] MEDS: docusate sod 100mg capsule PO SCH (19:27)
[2019-03-30] MEDS: methylPREDNISolone sod succ 125mg/2ml vial IV ONE ×2 (19:27→19:31)
[2019-03-30] MEDS: methylPREDNISolone sod succ 125mg/2ml vial IV SCH ×2 (19:28→19:29)
--- NOTE | 2019-03-30 19:37 | NUR ---
175mL urine output
[2019-03-30] MEDS: ipratropium/albuterol 3ml nebule NEB SCH ×2 (20:22→23:00)
--- NOTE | 2019-03-30 20:29 | NUR ---
Patient in room ED 4. I have received report from Oswaldo ADAMSON and had the opportunity to ask questions and assume patient care.
[2019-03-30 21:00] VITALS: BP 96/70
[2019-03-30] MEDS ORDERED: temazepam 15mg capsule PO PRN (21:00)
[2019-03-30] MEDS: HYDROcodone/acetaminophen 10/325mg tab PO PRN (21:51)
[2019-03-30 22:00] VITALS: BP 99/67
--- NOTE | 2019-03-30 22:26 | NUR ---
Patient arrived to the floor at 2044 from the ER via gurney. Vital signs stable at this time. Pt continues on Lasix gtt. Skin check complete and wound photos available in chart. Oriented patient to room, medication times, meal times, vital signs times, and unit policies. MRSA swab collected. Pt darted.
[2019-03-30 23:00] VITALS: BP 94/65
--- NOTE | 2019-03-30 23:12 | NUR ---
Pts blood pressures have been trending down. Current BP 87/61. MD ordered to decrease Lasix gtt to 5.
[2019-03-31] VITALS (10 sets, daily range): BP systolic 92–109; BP diastolic 64–80
[2019-03-31] MEDS: furosemide inj 100 MG in normal saline 100ml IV soln 90 ML IV SCH ×2 (03:00→14:32)
[2019-03-31 05:06] LABS: BASOPHILS % (AUTO) 0.1 % (0-1); EOSINOPHILS % (AUTO) 0 % (0-6); HEMATOCRIT 42.3 % (42.0-52.0); HEMOGLOBIN 14.3 g/dl (14.0-17.9); LYMPHOCYTES # (AUTO) 0.2 X10'3 (1.1-4.8); LYMPHOCYTES % (AUTO) 2.4 % (21-51); MEAN CORPUSCULAR HEMOGLOBIN 35.2 PG (27.0-31.0); MEAN CORPUSCULAR HGB CONC 33.9 g/dL (33.0-36.5); MEAN CORPUSCULAR VOLUME 103.8 FL (78-98); MEAN PLATELET VOLUME 6.9 FL (7.4-10.4); MONOCYTES # (AUTO) 0.1 X10'3 (0-0.9); MONOCYTES % (AUTO) 1.3 % (2-12); NEUTROPHILS # (AUTO) 8.3 X10'3 (1.8-7.7); NEUTROPHILS % (AUTO) 96.2 % (42-75); PLATELET COUNT 201 X10'3 (140-440); RED BLOOD COUNT 4.07 X10'6 (4.70-6.10); RED CELL DISTRIBUTION WIDTH 18.1 % (11.5-14.5); WHITE BLOOD COUNT 8.7 X10'3 (4.5-11.0)
[2019-03-31 05:29] LABS: ALANINE AMINOTRANSFERASE 13 U/L (12-78); ALBUMIN 2.6 G/DL (3.4-5.0); ALBUMIN/GLOBULIN RATIO 0.6 (1.1-1.5); ALKALINE PHOSPHATASE 98 IU/L (46-116); ANION GAP 1 (8-16); ASPARTATE AMINO TRANSFERASE 38 U/L (10-37); BILIRUBIN,TOTAL 1.5 MG/DL (0.1-1.0); BLOOD UREA NITROGEN 28 MG/DL (7-18); BUN/CREATININE RATIO 24.1 (5.4-32.0); CALCIUM 8.7 MG/DL (8.5-10.1); CHLORIDE 100 MMOL/L (99-107); CREATININE 1.16 MG/DL (0.60-1.10); GLUCOSE 139 MG/DL (70-104); PHOSPHORUS 5.4 MG/DL (2.3-4.5); POTASSIUM 4.8 MMOL/L (3.5-5.1); SODIUM 136 MMOL/L (135-145); TOTAL CARBON DIOXIDE 35.2 MMOL/L (24-32); TOTAL PROTEIN 7.3 G/DL (6.4-8.2); eGFR 65 ML/MIN
--- NOTE | 2019-03-31 06:16 | NUR ---
Problems reprioritized. Patient report given, questions answered & plan of care reviewed with Traci ADAMSON.
--- NOTE | 2019-03-31 06:37 | NUR ---
Patient in room PCU 3017. I have received report from Samara ADAMSON and had the opportunity to ask questions and assume patient care.
--- NOTE | 2019-03-31 06:38 | NUR ---
Patient in room PCU 3017. I have received report from JUAN DIEGO Pascual and had the opportunity to ask questions and assume patient care. Patient awake in bed. No complaints at this time. All immediate needs met.
[2019-03-31] MEDS: ipratropium/albuterol 3ml nebule NEB SCH ×5 (06:42→23:12)
[2019-03-31] MEDS: K and/or MAG REPLACEMENT MC SCH ×2 (08:00→20:00)
[2019-03-31] MEDS: docusate sod 100mg capsule PO SCH ×2 (08:42→19:21)
[2019-03-31] MEDS: methylPREDNISolone sod succ 125mg/2ml vial IV SCH ×3 (08:42→19:21)
[2019-03-31] MEDS: CefTRIAXone/D5W-Rocephin 1gm 50 ML IV SCH (08:52)
[2019-03-31] MEDS: HYDROcodone/acetaminophen 10/325mg tab PO PRN ×2 (09:10→19:21)
--- NOTE | 2019-03-31 10:49 | NUR ---
New order from Dr. Franks: Renewable grace order.
--- NOTE | 2019-03-31 11:10 | NUR ---
Up to patient's room with Israel CULLEN for a paracentesis as ordered by Dr. Franks. Informed consent obtained by ALYSE from patient. Patient's vitals BP 104/77 HR 102 O2 95% 1L RR 20. Patient's abdomen scanned with ultrasound by Wayne CULLEN and found to not have an adequate amount of fluid for safe paracentesis. Patient aware, MD aware, report given to bedside RN.
--- NOTE | 2019-03-31 12:04 | NUR ---
PRESSURE ULCER EDUCATION: DEFINITION: A pressure ulcer is an area of skin that breaks down when you stay in one position too long. The constant pressure against the skin reduces the blood flow to that area and the affected tissue dies. CAUSES: "Being bedridden or in a wheelchair "Fragile skin "Having a chronic condition, such as diabetes or vascular disease "Inability to move certain parts of your body without assistance "Older age "Incontinence of urine or stool SYMPTOMS: "A reddened area that DOES NOT turn white when pressed on - this can be the beginning of a pressure ulcer "A blister, deep sore or a crater - these can be advanced pressure ulcers FIRST AID: "Relieve the pressure on this area "Keep the area clean and dry "Call your primary doctor if you see any of the above symptoms "DO NOT massage the area "DO NOT use a donut shaped or ring shaped pillow- these actually interfere with the blood flow and cause complications PREVENTION: "Check for pressure ulcers everyday "Change position at least every two hours to relieve pressure "Use items that help relieve pressure- pillows, sheepskin, foam padding, and powders. "Keep skin clean and dry "Eat healthy well balanced meals "Exercise daily IF YOU SEE ANY OF THESE SYMPTOMS WHILE IN THE HOSPITAL - TELL YOUR NURSE IMMEDIATELY. IF YOU SEE ANY OF THESE SYMPTOMS WHILE AT HOME OR HAVE ANY QUESTIONS OR CONCERNS ABOUT PRESSURE ULCERS - CALL YOUR PRIMARY DOCTOR IMMEDIATELY. Addendum: 03/31/19 at 1204 by Yariel Landa RN Amended: Links added.
--- NOTE | 2019-03-31 13:08 | NUR ---
Nutrition consult: Pt with hx T2DM, current A1c is 5.9, DM education not warranted at this time. Pt with low Se of 11. Per WOC notes pt with partial thickness venous ulcer to left thigh. Protein education not warranted at this time. Pt currently on heart healthy diet, pending documentation of PO intake. Will continue to follow and monitor PO trends and need for ONS. Addendum: 03/31/19 at [address] Amended: Links added.
[2019-03-31 14:30] LABS: ALBUMIN 2.5 G/DL (3.4-5.0); ANION GAP 7 (8-16); BLOOD UREA NITROGEN 29 MG/DL (7-18); BUN/CREATININE RATIO 27.6 (5.4-32.0); CALCIUM 8.5 MG/DL (8.5-10.1); CHLORIDE 97 MMOL/L (99-107); CREATININE 1.05 MG/DL (0.60-1.10); GLUCOSE 168 MG/DL (70-104); MAGNESIUM 1.9 MG/DL (1.5-2.4); SODIUM 137 MMOL/L (135-145); TOTAL CARBON DIOXIDE 32.6 MMOL/L (24-32); eGFR 73 ML/MIN
[2019-03-31 14:31] LABS: PHOSPHORUS 4.9 MG/DL (2.3-4.5); POTASSIUM 5.5 MMOL/L (3.5-5.1)
--- NOTE | 2019-03-31 18:27 | NUR ---
[place] documentation: I have reviewed and agree with all interventions, assessments performed and documented by JUAN DIEGO Friedman. [place] Medication Administration: For this medication-pass time frame, all medication were reviewed, dispensed, administered and documented per hospital policy by JUAN DIEGO Friedman.
[2019-03-31 18:28] LABS: ALBUMIN 2.7 G/DL (3.4-5.0); ANION GAP 3 (8-16); BLOOD UREA NITROGEN 32 MG/DL (7-18); BUN/CREATININE RATIO 25.6 (5.4-32.0); CALCIUM 8.9 MG/DL (8.5-10.1); CHLORIDE 99 MMOL/L (99-107); CREATININE 1.25 MG/DL (0.60-1.10); GLUCOSE 155 MG/DL (70-104); MAGNESIUM 2.1 MG/DL (1.5-2.4); PHOSPHORUS 4.9 MG/DL (2.3-4.5); POTASSIUM 5.2 MMOL/L (3.5-5.1); SODIUM 138 MMOL/L (135-145); TOTAL CARBON DIOXIDE 36.3 MMOL/L (24-32); eGFR 59 ML/MIN
[2019-03-31] MEDS: HYDROcodone/acetaminophen 5mg/325mg tablet PO PRN (23:54)
[2019-04-01 01:10] LABS: BASOPHILS % (AUTO) 0.2 % (0-1); EOSINOPHILS % (AUTO) 0 % (0-6); HEMOGLOBIN 13.6 g/dl (14.0-17.9); LYMPHOCYTES # (AUTO) 0.2 X10'3 (1.1-4.8); LYMPHOCYTES % (AUTO) 1.6 % (21-51); MEAN CORPUSCULAR HEMOGLOBIN 34.4 PG (27.0-31.0); MEAN CORPUSCULAR HGB CONC 33.2 g/dL (33.0-36.5); MEAN CORPUSCULAR VOLUME 103.7 FL (78-98); MEAN PLATELET VOLUME 6.9 FL (7.4-10.4); MONOCYTES # (AUTO) 0.4 X10'3 (0-0.9); MONOCYTES % (AUTO) 3.5 % (2-12); NEUTROPHILS # (AUTO) 11.2 X10'3 (1.8-7.7); NEUTROPHILS % (AUTO) 94.7 % (42-75); PLATELET COUNT 196 X10'3 (140-440); RED BLOOD COUNT 3.96 X10'6 (4.70-6.10); RED CELL DISTRIBUTION WIDTH 18.4 % (11.5-14.5); WHITE BLOOD COUNT 11.9 X10'3 (4.5-11.0)
[2019-04-01 01:27] LABS: ALANINE AMINOTRANSFERASE 13 U/L (12-78); ALBUMIN 2.5 G/DL (3.4-5.0); ALBUMIN/GLOBULIN RATIO 0.5 (1.1-1.5); ALKALINE PHOSPHATASE 93 IU/L (46-116); ANION GAP 7 (8-16); ASPARTATE AMINO TRANSFERASE 31 U/L (10-37); BILIRUBIN,TOTAL 0.9 MG/DL (0.1-1.0); BLOOD UREA NITROGEN 35 MG/DL (7-18); BUN/CREATININE RATIO 29.9 (5.4-32.0); CALCIUM 8.4 MG/DL (8.5-10.1); CHLORIDE 99 MMOL/L (99-107); CREATININE 1.17 MG/DL (0.60-1.10); GLUCOSE 197 MG/DL (70-104); MAGNESIUM 1.8 MG/DL (1.5-2.4); PHOSPHORUS 4.5 MG/DL (2.3-4.5); POTASSIUM 4.8 MMOL/L (3.5-5.1); SODIUM 135 MMOL/L (135-145); TOTAL CARBON DIOXIDE 28.8 MMOL/L (24-32); TOTAL PROTEIN 7.5 G/DL (6.4-8.2); eGFR 64 ML/MIN
[2019-04-01] MEDS: furosemide inj 100 MG in normal saline 100ml IV soln 90 ML IV SCH ×3 (02:03→17:39)
[2019-04-01] MEDS: methylPREDNISolone sod succ 125mg/2ml vial IV SCH ×4 (02:08→19:19)
[2019-04-01 03:00] VITALS: BP 138/71
[2019-04-01] MEDS: HYDROcodone/acetaminophen 10/325mg tab PO PRN (05:23)
[2019-04-01] MEDS: HYDROcodone/acetaminophen 5mg/325mg tablet PO PRN ×2 (05:26→19:18)
[2019-04-01 06:00] VITALS: BP 119/86
[2019-04-01 06:52] LABS: ALBUMIN 2.6 G/DL (3.4-5.0); ANION GAP 5 (8-16); BLOOD UREA NITROGEN 35 MG/DL (7-18); BUN/CREATININE RATIO 29.7 (5.4-32.0); CALCIUM 8.3 MG/DL (8.5-10.1); CHLORIDE 99 MMOL/L (99-107); CREATININE 1.18 MG/DL (0.60-1.10); GLUCOSE 191 MG/DL (70-104); MAGNESIUM 1.9 MG/DL (1.5-2.4); PHOSPHORUS 4.8 MG/DL (2.3-4.5); POTASSIUM 4.8 MMOL/L (3.5-5.1); SODIUM 135 MMOL/L (135-145); TOTAL CARBON DIOXIDE 30.7 MMOL/L (24-32); eGFR 63 ML/MIN
--- NOTE | 2019-04-01 06:54 | NUR ---
Patient in room PCU 3017. I have received report from Tram ADAMSON and had the opportunity to ask questions and assume patient care. All patient needs met at this time. Will continue to round hourly.
[2019-04-01] MEDS: ipratropium/albuterol 3ml nebule NEB SCH ×5 (07:02→23:54)
[2019-04-01] MEDS: K and/or MAG REPLACEMENT MC SCH ×2 (08:00→20:00)
[2019-04-01] MEDS: docusate sod 100mg capsule PO SCH ×2 (08:53→19:18)
[2019-04-01] MEDS: CefTRIAXone/D5W-Rocephin 1gm 50 ML IV SCH (08:53)
[2019-04-01 11:00] VITALS: BP 115/81
[2019-04-01 12:44] LABS: ALBUMIN 2.6 G/DL (3.4-5.0); ANION GAP 2 (8-16); BLOOD UREA NITROGEN 38 MG/DL (7-18); BUN/CREATININE RATIO 31.1 (5.4-32.0); CALCIUM 8.7 MG/DL (8.5-10.1); CHLORIDE 98 MMOL/L (99-107); CREATININE 1.22 MG/DL (0.60-1.10); GLUCOSE 183 MG/DL (70-104); PHOSPHORUS 4.6 MG/DL (2.3-4.5); SODIUM 134 MMOL/L (135-145); eGFR 61 ML/MIN
[2019-04-01 12:46] LABS: POTASSIUM 4.7 MMOL/L (3.5-5.1)
[2019-04-01] MEDS ORDERED: polyethylene glycol 3350 17gm powd pack PO PRN (12:55)
[2019-04-01] MEDS ORDERED: lactulose 20gm/30ml cup PO PRN (12:55)
[2019-04-01 15:00] VITALS: BP 106/71
[2019-04-01 18:00] VITALS: BP 119/91
--- NOTE | 2019-04-01 18:00 | NUR ---
Patient in room PCU 3017. I have received report from Flaca ADAMSON and had the opportunity to ask questions and assume patient care.
--- NOTE | 2019-04-01 18:22 | NUR ---
Problems reprioritized. Patient report given, questions answered & plan of care reviewed with Aneta ADAMSON. All patient needs met at this time.
[2019-04-01 20:23] LABS: ALBUMIN 2.5 G/DL (3.4-5.0); ANION GAP 6 (8-16); BLOOD UREA NITROGEN 42 MG/DL (7-18); BUN/CREATININE RATIO 37.5 (5.4-32.0); CALCIUM 8.3 MG/DL (8.5-10.1); CHLORIDE 100 MMOL/L (99-107); CREATININE 1.12 MG/DL (0.60-1.10); GLUCOSE 239 MG/DL (70-104); MAGNESIUM 1.8 MG/DL (1.5-2.4); POTASSIUM 4.6 MMOL/L (3.5-5.1); SODIUM 136 MMOL/L (135-145); eGFR 67 ML/MIN
[2019-04-01 22:00] VITALS: BP 124/95
[2019-04-02] MEDS: HYDROcodone/acetaminophen 10/325mg tab PO PRN ×2 (00:36→05:12)
[2019-04-02 01:24] LABS: ALBUMIN 2.7 G/DL (3.4-5.0); ANION GAP -1 (8-16); BLOOD UREA NITROGEN 44 MG/DL (7-18); BUN/CREATININE RATIO 36.1 (5.4-32.0); CALCIUM 8.7 MG/DL (8.5-10.1); CHLORIDE 100 MMOL/L (99-107); CREATININE 1.22 MG/DL (0.60-1.10); GLUCOSE 187 MG/DL (70-104); MAGNESIUM 1.9 MG/DL (1.5-2.4); PHOSPHORUS 3.9 MG/DL (2.3-4.5); POTASSIUM 4.4 MMOL/L (3.5-5.1); SODIUM 135 MMOL/L (135-145); eGFR 61 ML/MIN
[2019-04-02 02:00] VITALS: BP 135/91
[2019-04-02] MEDS: methylPREDNISolone sod succ 125mg/2ml vial IV SCH ×3 (02:48→14:05)
[2019-04-02] MEDS: furosemide inj 100 MG in normal saline 100ml IV soln 90 ML IV SCH (05:13)
[2019-04-02 06:00] VITALS: BP 116/92
--- NOTE | 2019-04-02 06:37 | NUR ---
Problems reprioritized. Patient report given, questions answered & plan of care reviewed with Flaca ADAMSON.
[2019-04-02 06:39] LABS: BASOPHILS % (AUTO) 0.5 % (0-1); EOSINOPHILS % (AUTO) 0 % (0-6); HEMATOCRIT 41.4 % (42.0-52.0); HEMOGLOBIN 14.1 g/dl (14.0-17.9); LYMPHOCYTES # (AUTO) 0.2 X10'3 (1.1-4.8); LYMPHOCYTES % (AUTO) 1.5 % (21-51); MEAN CORPUSCULAR HEMOGLOBIN 35.2 PG (27.0-31.0); MEAN CORPUSCULAR VOLUME 103.4 FL (78-98); MEAN PLATELET VOLUME 6.9 FL (7.4-10.4); MONOCYTES # (AUTO) 0.5 X10'3 (0-0.9); MONOCYTES % (AUTO) 4.2 % (2-12); NEUTROPHILS # (AUTO) 10.1 X10'3 (1.8-7.7); NEUTROPHILS % (AUTO) 93.8 % (42-75); PLATELET COUNT 196 X10'3 (140-440); RED CELL DISTRIBUTION WIDTH 18.1 % (11.5-14.5); WHITE BLOOD COUNT 10.8 X10'3 (4.5-11.0)
[2019-04-02] MEDS: ipratropium/albuterol 3ml nebule NEB SCH ×2 (06:50→11:15)
--- NOTE | 2019-04-02 06:50 | NUR ---
BED ALARM SOUNDING IN 3017A. I WENT TO HELP PT ROOM MATE. I FOUND 3017B ALEXIA PULLING OFF ALL MONITORING DEVISES. BED HIGH UP IT COULD GO WITH PT TRYING TO GET OUT OF BED. I ASKED PT WHAT HE WANTED. HE BECAME EXTREMELY VERBALLY AGGRESSIVE. I TOLD HIM TO WAIT , THE BED WAS WAY TOO HIGH OFF THE GROUND. HE WAS YELLING, "I NEED TO TAKE A SHIT!". I INFORMED HIM HE NEEDS TO USE THE CALL LIGHT WHEN HE NEEDS SOMETHING. HE YELLED "I DID NOBODY ANSWERED!" I TOLD HIM THAT IT MUST NOT HAVE WORKED IT NEVER WENT OFF. WITH THE HELP OF ANOTHER RN WE ASSISTED PT TO [facility]. Addendum: 04/02/19 at 1029 by Rosa Carpenter RN Amended: Links added.
--- NOTE | 2019-04-02 06:53 | NUR ---
Patient in room PCU 3017. I have received report from Aneta ADAMSON and had the opportunity to ask questions and assume patient care. Patient stable and resting comfortably
[2019-04-02 06:54] LABS: ALANINE AMINOTRANSFERASE 14 U/L (12-78); ALBUMIN 2.6 G/DL (3.4-5.0); ALBUMIN/GLOBULIN RATIO 0.5 (1.1-1.5); ALKALINE PHOSPHATASE 94 IU/L (46-116); ANION GAP 6 (8-16); ASPARTATE AMINO TRANSFERASE 32 U/L (10-37); BILIRUBIN,TOTAL 0.9 MG/DL (0.1-1.0); BLOOD UREA NITROGEN 42 MG/DL (7-18); BUN/CREATININE RATIO 36.2 (5.4-32.0); CALCIUM 8.8 MG/DL (8.5-10.1); CHLORIDE 100 MMOL/L (99-107); CREATININE 1.16 MG/DL (0.60-1.10); GLUCOSE 183 MG/DL (70-104); PHOSPHORUS 4.1 MG/DL (2.3-4.5); POTASSIUM 4.6 MMOL/L (3.5-5.1); SODIUM 138 MMOL/L (135-145); TOTAL CARBON DIOXIDE 31.9 MMOL/L (24-32); TOTAL PROTEIN 7.8 G/DL (6.4-8.2); eGFR 65 ML/MIN
--- NOTE | 2019-04-02 06:55 | NUR ---
Patient in room PCU 3017. I have received report from Aneta ADAMSON and had the opportunity to ask questions and assume patient care. All patient needs met at this time.
[2019-04-02] MEDS: K and/or MAG REPLACEMENT MC SCH (08:00)
[2019-04-02] MEDS: CefTRIAXone/D5W-Rocephin 1gm 50 ML IV SCH (08:01)
[2019-04-02] MEDS: docusate sod 100mg capsule PO SCH (08:01)
--- NOTE | 2019-04-02 09:56 | NUR ---
Patient is refusing care, taking off all of his monitors, states he no longer wants to be in the hospital and wants to go home. Christina and Dr Franks are aware of his non compliance behavior and are working on the next plan of care for him.
--- NOTE | 2019-04-02 10:24 | NUR ---
Paged Dr Franks MESSAGE: Re: Jonatan Reeder [id number] VENKATA Pt is non compliant, took off all his tele leads, 02 monitor and wants to leave. Christina is aware and is working on a plan, thank you Flaca Garland [phone]
[2019-04-02] MEDS: propranolol 10mg tablet PO SCH ×2 (10:29→14:05)
[2019-04-02 11:00] VITALS: BP 128/96
[2019-04-02] MEDS ORDERED: LACT10SO32 PO (11:10)
[2019-04-02] MEDS ORDERED: PRED20TA PO (11:10)
[2019-04-02] MEDS ORDERED: ZAR2.5T PO (11:10)
[2019-04-02] MEDS ORDERED: CEFD300C3 PO (11:10)
[2019-04-02] MEDS ORDERED: FURO40TA4 PO (11:14)
[2019-04-02 12:53] LABS: ALBUMIN 2.8 G/DL (3.4-5.0); ANION GAP 2 (8-16); BLOOD UREA NITROGEN 43 MG/DL (7-18); BUN/CREATININE RATIO 33.6 (5.4-32.0); CHLORIDE 100 MMOL/L (99-107); CREATININE 1.28 MG/DL (0.60-1.10); GLUCOSE 169 MG/DL (70-104); PHOSPHORUS 4.6 MG/DL (2.3-4.5); POTASSIUM 4.8 MMOL/L (3.5-5.1); SODIUM 135 MMOL/L (135-145); TOTAL CARBON DIOXIDE 32.6 MMOL/L (24-32); eGFR 58 ML/MIN
--- NOTE | 2019-04-02 14:15 | NUR ---
Patient is stable for discharge per MD orders. All discharge instructions reviewed with patient and all questions were answered. Follow up appointment was made by Christina at [facility] with primary provider on April 09 at 1045. Patient is aware of appointment. New prescriptions were called into [facility] [place]. PIV was discontinued, cannula intact. Patient already discontinued him self from his mobile tele, telephone supervisor was informed. All belongings were collected and sent with patient. His friend picked him up with his personal vehicle. I wheeled patient to lobby and helped into vehicle.
[2019-04-02] MEDS ORDERED: lactobacillus rhamnosus 10,000 MMU CELLS/CAPSULE PO SCH (20:00)
[2019-04-05] MEDS ORDERED: ASPI-1053 (04:13)
== END 2019-04-02 14:35 | disposition home health service (06) | DRG 291 ==
LOC: ER 15:14 → ED HOLD 17:26 → PCU 3S 20:47
PROVIDERS: ADMIT Family Medicine; ATTEND Family Medicine
PROC: 0W9G3ZZ Drainage of Peritoneal Cavity, Percutaneous Approach (ICD-10-PCS; principal; 2019-03-31)
DX: I13.0 Hypertensive heart and chronic kidney disease with heart failure and stage 1 through stage 4 chronic kidney disease, or unspecified chronic kidney disease (principal); I50.23 Acute on chronic systolic (congestive) heart failure; J96.01 Acute respiratory failure with hypoxia; J18.9 Pneumonia, unspecified organism; E87.1 Hypo-osmolality and hyponatremia; J44.0 Chronic obstructive pulmonary disease with (acute) lower respiratory infection; R18.8 Other ascites; B19.20 Unspecified viral hepatitis C without hepatic coma; E11.22 Type 2 diabetes mellitus with diabetic chronic kidney disease; E87.5 Hyperkalemia; E87.6 Hypokalemia; F15.90 Other stimulant use, unspecified, uncomplicated; I25.10 Atherosclerotic heart disease of native coronary artery without angina pectoris; I42.7 Cardiomyopathy due to drug and external agent; K72.90 Hepatic failure, unspecified without coma; K74.60 Unspecified cirrhosis of liver; N18.9 Chronic kidney disease, unspecified; N40.0 Benign prostatic hyperplasia without lower urinary tract symptoms; Z51.5 Encounter for palliative care; Z66 Do not resuscitate; Z87.442 Personal history of urinary calculi; I25.2 Old myocardial infarction; Z87.891 Personal history of nicotine dependence; Z95.5 Presence of coronary angioplasty implant and graft; Z99.81 Dependence on supplemental oxygen; Z88.5 Allergy status to narcotic agent
CPT/HCPCS: 36415; 71045; 76705; 80053; 80069; 82948; 83735; 83880; 84100; 84145; 84484; 85025; 85610; 87081; 93005; 94640; 94760; 96374; 96375; 97110; 97162; 97530; 97535; 99285; G0378; J0696; J1815; J1940; J2930